=== PATIENT | female | born 1945 | race African-American/Black ===

== ENCOUNTER 2017-10-29 10:48 | Inpatient (IN) | payer MEDICARE ==
[2017-10-29 11:26] LABS: #Basophils 0.1 thou/uL (0.0-0.2); #Eosinphils 0.1 thou/uL (0.0-0.7); #Lymphocytes 2.2 thou/uL (1.20-3.40); #Monocytes 0.6 thou/uL (0.11-0.59); #Neutrophils 8.7 thou/uL (1.40-6.50); %Basophils 0.4 % (0.0-1.0); %Eosinophils 0.8 % (0.0-10.0); %Lymphocytes 19.1 % (21.0-51.0); %Monocytes 5.2 % (0.0-10.0); %Neutrophils 74.5 % (42.0-75.0); Hemoglobin 12.5 g/dL (12.0-16.0); Mean Corpuscular HGB CONC 31.9 g/dL (32.0-36.0); Mean Corpuscular Hemoglobin 25.8 pg (27.0-31.0); Mean Corpuscular Volume 80.9 fl (81.0-99.0); Mean Platelet Volume 7.1 fL (7.4-10.4); Platelet Count 286 thou/uL (130-400); RBC Distribution Width 12.4 % (11.5-14.5); Red Blood Cell (RBC) Count 4.83 mill/uL (4.20-5.40); White Blood Cell (WBC) Count 11.6 thou/uL (4.8-10.8)
--- NOTE | 2017-10-29 11:33 | RAD ---
CHEST 1 VIEW: Date: 10/29/17 HISTORY: Sore throat. Chest pain. Dyspnea. FINDINGS: No comparison. Cardiac silhouette is magnified by projection. Pulmonary vasculature is unremarkable. Mediastinum is midline. At the right suprahilar level, a well circumscribed radiopacity measures up to 3.7 cm and ov erlies the otherwise normal appearing azygos vein. Subtle, poorly defined opacities throughout the left chest would normally be favored as pleural plaqu es, although the abnormality at the right hilum raises concern for additional parenchymal lesions. Cu rved line over the left upper chest is noted. Parenchymal markings extend across it, showing that it is not a pneumothorax and may represent a skin fold. IMPRESSION: Abnormalities of the right suprahilar level and throughout the left hemithorax as detailed above. Con cern is primarily for a right suprahilar mass or adenopathy. Please consider CT chest for better rubén acterization. POS: [facility]
[2017-10-29 11:54] LABS: CKMB 2.7 ng/mL (0-6.6)
[2017-10-29 12:08] LABS: ALT (SGPT) 23 U/L (8-55); AST (SGOT) 29 U/L (5-34); Albumin 4.1 g/dL (3.4-4.8); Alkaline Phosphatase 129 U/L (40-150); Anion Gap 15 mmol/L (10-20); BUN (Urea Nitrogen) 20 mg/dL (9.8-20.1); Bilirubin, Total 0.3 mg/dL (0.2-1.2); CK (CPK) 50 U/L (29-168); Calc. Creatinine Clearance 0 mL/min (70-130); Carbon Dioxide 23 mmol/L (23-31); Chloride 104 mmol/L (98-107); Estimated GFR-MDRD 55; Globulin 4.1 g/dL (2.4-3.5); Glucose 140 mg/dL (83-110); Potassium 4.6 mmol/L (3.5-5.1); Protein, Total 8.2 g/dL (6.0-8.3); Sodium 137 mmol/L (136-145)
[2017-10-29 12:18] LABS: Troponin I 0.014 ng/mL (< 0.028)
[2017-10-29 12:32] LABS: MONO NEGATIVE CONTROL ZONE White (Negative) (White); MONO POSITIVE CONTROL Pink Line (Positive) (PINK/RED); Mononucleosis NEGATIVE (NEGATIVE)
[2017-10-29 12:44] LABS: Bilirubin Negative (Negative); Blood, Urine Moderate (Negative); Clarity CLEAR (Clear); Glucose, Urine (Dipstick) Negative (Negative); Leukocyte Negative (Negative); Nitrite Negative (Negative); Protein, Urine (Dipstick) 100 mg/dL (Neg-Trace); Specific Gravity, Urine 1.005 (1.002-1.036); Urobilinogen 0.2 mg/dL (0.2-1.0); pH, Urine 7.5 (5.0-9.0)
[2017-10-29] MEDS ORDERED: Labetalol HCl 100 MG/20 ML VIAL ONE ×2 (12:45→14:32)
[2017-10-29 12:47] LABS: Bacteria/HPF None Seen HPF (None Seen); Hyaline Casts/LPF 0-3 HYALINE CAST LPF (0-3 Hyaline); Squamous Epithelial None Seen HPF (0-3); WBC/HPF None Seen HPF (0-3)
[2017-10-29] MEDS ORDERED: Hydrocortisone Sod Succ/PF 100 mg/2 ml Vial IVP SCH (13:00)
[2017-10-29] MEDS ORDERED: Propranolol 60 MG TAB PO SCH (13:00)
--- NOTE | 2017-10-29 14:24 | PDOC.FPRHP ---
- History of Present Illness Chief Complaint: Sore throat History of Present Illness: 72 yo F h/hx of HTN here with CC of sore throat for the past few days. She noted this morning that in addition to sore throat she felt light headed and nauseous. In the ED she was noted to have a large goiter, hypertensive (252/119) , and tachycardic (120). She has been seen in the past for the goiter, however has had poor follow up for treatment. She denies ever being told in the past that she was actually hyperthyroid and does not remember being told that it needed treatment. Pt states that she has been diagnosed with HTN in the past, however has been off of her meds for over a year and has not been seen by a PCP in at least as long. She states that the last time she took her BP consistently it typically ran in the 180 systolic range. She denies recent fever, diarrhea, double vision, dry eyes, or nervousness/agitation. Per her he has noticed that her goiter has grown significantly over the past year. PCP: [facility] Course: In the ED patient was given labetalol 20 mg, propranolol, 60mg, and hydrocortisone 100 mg - Allergies/Adverse Reactions Allergies Allergy/AdvReac Type Severity Reaction Status Date / Time No Known Drug Allergies Allergy Verified 10/29/17 12:45 - Home Medications Comments: Pt has been off of meds for over 1 year, however was previously on a combo pill that included HCTZ 12.5 mg - History PMHx: HTN Goiter PSHx: Hysterectomy for fibroids FHx: Social: No tobacco, etoh, or recreational drug use - Review of Systems General: reports: weight/appetite/sleep changes (30 lb weight loss over a year without trying. Has not put on weight even when actively eating more). denies: fever/chills Eyes: denies: vision changes ENT: reports: other (Sore throat). denies: rhinorrhea Respiratory: denies: cough, congestion, shortness of breath, exercise intolerance Cardiovascular: denies: chest pain, palpitation Gastrointestinal: reports: nausea, vomiting. denies: diarrhea, constipation, abdominal pain Genitourinary: denies: incontinence, dysuria, polyuria Skin: denies: rashes, lesions Musculoskeletal: denies: pain, tenderness, stiffness, swelling Neurological: reports: other (light headedness). denies: numbness, syncope, seizure, weakness Psychological: denies: anxiety, depression - Vital signs BP: 252/119 HR: 114 RR: 20 Tmax: 98.5 Pox: 96% on RA Wt: 68 kg - Physical Exam Constitutional: NAD, awake, alert and oriented, well developed HEENT: normocephalic and atraumatic, PERRLA, EOMI, conjunctiva clear, no scleral icterus Neck: supple, FROM, trachea midline -Neck: Large goiter, L more than R. Non tender Chest: no-tender to palpation Heart: RRR, normal S1/S2 -Heart: Systolic murmur, non radiating. Loudest over mitral valve Lungs: CTAB, no respiratory distress, good air movement Abdomen: soft, non-tender, bowel sounds present Musculoskeletal: normal structure, normal tone Neurological: no focal deficit, CN II-XII intact, normal sensation, DTRs 2+ Skin: no rash/lesions, good turgor Heme/Lymphatic: no unusual bruising or bleeding Psychiatric: normal mood and affect -Psychiatric: akathesia FMR H&P: Results - Labs Result Diagrams: 10/29/17 11:16 10/29/17 11:16 Lab results: WBC 11.6 thou/uL (4.8-10.8) H 10/29/17 11:16 Hgb 12.5 g/dL (12.0-16.0) 10/29/17 11:16 Hct 39.1 % (36.0-47.0) 10/29/17 11:16 MCV 80.9 fl (81.0-99.0) L 10/29/17 11:16 Plt Count 286 thou/uL (130-400) 10/29/17 11:16 Neutrophils % 74.5 % (42.0-75.0) 10/29/17 11:16 Sodium 137 mmol/L (136-145) 10/29/17 11:16 Potassium 4.6 mmol/L (3.5-5.1) 10/29/17 11:16 Chloride 104 mmol/L (98-107) 10/29/17 11:16 Carbon Dioxide 23 mmol/L (23-31) 10/29/17 11:16 BUN 20 mg/dL (9.8-20.1) 10/29/17 11:16 Creatinine 1.16 mg/dL (0.6-1.1) H 10/29/17 11:16 Glucose 140 mg/dL (83-110) H 10/29/17 11:16 Lactic Acid 1.7 mmol/L (0.5-2.2) 10/29/17 11:39 Calcium 10.0 mg/dL (7.8-10.44) 10/29/17 11:16 Total Bilirubin 0.3 mg/dL (0.2-1.2) 10/29/17 11:16 AST 29 U/L (5-34) 10/29/17 11:16 ALT 23 U/L (8-55) 10/29/17 11:16 Alkaline Phosphatase 129 U/L (40-150) 10/29/17 11:16 Creatine Kinase 50 U/L (29-168) 10/29/17 11:16 CK-MB (CK-2) 2.7 ng/mL (0-6.6) 10/29/17 11:16 Serum Total Protein 8.2 g/dL (6.0-8.3) 10/29/17 11:16 Albumin 4.1 g/dL (3.4-4.8) 10/29/17 11:16 Urine Ketones Negative mg/dL (Negative) 10/29/17 12:23 Urine Blood Moderate (Negative) H 10/29/17 12:23 Urine Nitrite Negative (Negative) 10/29/17 12:23 Ur Leukocyte Esterase Negative (Negative) 10/29/17 12:23 Urine RBC 11-20 HPF (0-3) H 10/29/17 12:23 Urine WBC None Seen HPF (0-3) 10/29/17 12:23 Ur Squamous Epith Cells None Seen HPF (0-3) 10/29/17 12:23 Urine Bacteria None Seen HPF (None Seen) 10/29/17 12:23 Laboratory Tests 10/29/17 10/29/17 11:11 11:11 Thyroxine (T4) 17.6 H TSH 3rd Generation Less than 0.0025 L - EKG Interpretation EKG: Sinus tach, no ST changes, possible LVH - Radiology Interpretation Chest x-ray Status: report reviewed by me (R suprahilar and L hemithorax concerning for R suprahilar mass vs adenopathy. 3.7 cm, well circumscribed.) FMR H&P: A/P - Problem List (1) Thyrotoxicosis Current Visit: Yes Status: Acute Priority: High Code(s): E05.90 - THYROTOXICOSIS, UNSP WITHOUT THYROTOXIC CRISIS OR STORM Qualifiers: Thyrotoxicosis type: unspecified thyrotoxicosis type Thyrotoxic crisis or storm presence: without thyrotoxic crisis or storm Qualified Code(s): E05.90 - Thyrotoxicosis, unspecified without thyrotoxic crisis or storm (2) Hypertensive urgency Current Visit: Yes Status: Acute Priority: High Code(s): I16.0 - HYPERTENSIVE URGENCY (3) Tachycardia Current Visit: Yes Status: Acute Priority: High Code(s): R00.0 - TACHYCARDIA, UNSPECIFIED (4) Hyperthyroidism Current Visit: Yes Status: Acute Priority: Medium Code(s): E05.90 - THYROTOXICOSIS, UNSP WITHOUT THYROTOXIC CRISIS OR STORM (5) Hypertension Current Visit: Yes Status: Chronic Priority: Medium Code(s): I10 - ESSENTIAL (PRIMARY) HYPERTENSION Qualifiers: Hypertension type: essential hypertension Qualified Code(s): I10 - Essential (primary) hypertension (6) Goiter Current Visit: Yes Status: Acute Priority: Medium Code(s): E04.9 - NONTOXIC GOITER, UNSPECIFIED (7) Mediastinal mass Current Visit: Yes Status: Acute Priority: Medium - Plan Thyrotoxicosis - Score for diagnostic criteria is 25 with 45 being thyroid storm. There is concern for impending storm. - Control BP with beta blockers. Goal 180/110 - Methimazole qDay to control thyroid release - monitor on IMCU - consider ENT consult and further imaging Hypertensive urgency - BP goal with beta blockers. 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 - ENT consult as above - methmizole daily HTN - Likely chronic combined with hyperthyroid - will start outpt meds Goiter - very large goiter, likely needs debulking - ENT consult as above - US pending Mediastinal Mass - CT chest when more stable Tachycardia - secondary to thyrotoxicosis, beta blockers as above PPx - SCD Code Full Diet heart healthy Dispo: pt is currently stable from a circulatory perspective. Will work to stabilize thyroid hormone, then consider further work up for chronic thyroid and mass pathology FMR H&P: Upper Level - Plan Date/Time: 10/29/17 1406 I, [], have evaluated this patient and agree with findings/plan as outlined by data analysis intern resident. Pertinent changes/additions are listed here.
[2017-10-29] MEDS ORDERED: Methimazole 10 MG TAB PO SCH ×2 (14:45→18:00)
--- NOTE | 2017-10-29 16:46 | PDOC.EVN ---
Attending Addendum - Attending Addendum Date/Time: 10/29/17 0390 I personally evaluated the patient and discussed the management with Dr. Rader /Gabriella. I agree with the History, Examination, Assessment and Plan documented in their H &P with any addition or exceptions noted below. Patient with history of enlarged thyroid gland but denies any history of hyperthyroidism presenting here today with weakness and feelings of off balance that started overnight. She otherwise denies headache, chest pain, shortness of breath, leg swelling. She does endorse some difficulty swallowing associated with large goiter that has been progressive, and had some palpitations this morning. Her exam is pertinent for highly elevated blood pressures on arrival that have now improved, tachycardia that is improved, a large goiter on neck exam, and no lower extremity edema. Her imaging is positive for a possible lung mass. Labs show highly suppressed TSH, elevated T4. No other major lab abnormalities noted at this time. She will be admitted for uncontrolled hyperthyroidism and HTN urgency. She does not have evidence of cardiovascular instability, sympathetic instability, altered mentation that would suggest thyrotoxicosis or thyroid storm. We will modulate blood pressures slowly over the next 24 hours as she is asymptomatic, and begin assisted control. Begin methimazole for hyperthyroidism, as well as Propranolol. Labs to evaluate etiology of her elevated thyroid function, and thyroid ultrasound. We will obtain CT chest to further characterize lung mass. Admit to telemetry, and trend trops.
[2017-10-29] MEDS ORDERED: Labetalol HCl 100 MG/20 ML VIAL SLOW IVP PRN ×2 (16:53)
[2017-10-29 18:13] LABS: Creatinine, Urine 20.56 mg/dL (47-110)
[2017-10-29] MEDS: Propranolol 10 MG TAB PO SCH (18:19)
[2017-10-29] MEDS: Sodium Chloride 0.9% 1,000 ML IV SCH (18:19)
[2017-10-29 18:53] LABS: Troponin I 0.066 ng/mL (< 0.028)
--- NOTE | 2017-10-29 19:11 | ULT ---
THYROID SONOGRAM 10/29/17 HISTORY: Hyperthyroidism. FINDINGS: Right thyroid lobe measures up to 10.4 cm length and the left 11.0 cm. Isthmus is 0.5 cm in thickness . Very heterogeneous echotexture of the thyroid gland is apparent without dominant lesion evident. IMPRESSION: Severe enlargement of the thyroid gland, favoring severe Graves' thyroiditis enlargement over multino dular goiter. POS: [facility]
[2017-10-29] MEDS ORDERED: Famotidine/PF 20 mg/2ml Vial SLOW IVP SCH (21:00)
[2017-10-29] MEDS ORDERED: Famotidine 20 MG TAB PO SCH (21:30)
[2017-10-30] MEDS: Propranolol 10 MG TAB PO SCH ×2 (00:12→05:19)
[2017-10-30] MEDS: Sodium Chloride 0.9% 1,000 ML IV SCH (03:43)
[2017-10-30 05:30] LABS: #Eosinphils 0.1 thou/uL (0.0-0.7); #Lymphocytes 3.2 thou/uL (1.20-3.40); #Monocytes 1.1 thou/uL (0.11-0.59); #Neutrophils 5.6 thou/uL (1.40-6.50); %Basophils 0.3 % (0.0-1.0); %Eosinophils 0.9 % (0.0-10.0); %Lymphocytes 32.2 % (21.0-51.0); %Monocytes 10.6 % (0.0-10.0); %Neutrophils 56.1 % (42.0-75.0); Hemoglobin 9.4 g/dL (12.0-16.0); Mean Corpuscular HGB CONC 32.6 g/dL (32.0-36.0); Mean Corpuscular Volume 79.7 fl (81.0-99.0); Platelet Count 264 thou/uL (130-400); RBC Distribution Width 12.3 % (11.5-14.5); Red Blood Cell (RBC) Count 3.63 mill/uL (4.20-5.40)
[2017-10-30 05:43] LABS: Anion Gap 10 mmol/L (10-20); BUN (Urea Nitrogen) 22 mg/dL (9.8-20.1); Calc. Creatinine Clearance 52 mL/min (70-130); Calcium 8.9 mg/dL (7.8-10.44); Carbon Dioxide 25 mmol/L (23-31); Cardiac Risk 2.9 (Less than 4.5); Chloride 109 mmol/L (98-107); Cholesterol 146 mg/dl (< 200 Desired); Estimated GFR-MDRD 70; Glucose 117 mg/dL (83-110); HDL Cholesterol 50 mg/dL (>60 Neg Risk); LDL Cholesterol, Calculated 85 mg/dL; Potassium 3.6 mmol/L (3.5-5.1); Sodium 140 mmol/L (136-145); Triglycerides 56 mg/dL (Less than 150)
[2017-10-30 06:38] LABS: Troponin I 0.029 ng/mL (< 0.028)
[2017-10-30] MEDS: Famotidine 20 MG TAB PO SCH ×2 (07:48→20:15)
[2017-10-30] MEDS: Amlodipine 5 MG TAB PO SCH (07:48)
[2017-10-30] MEDS: Methimazole 10 MG TAB PO SCH (07:49)
[2017-10-30] MEDS: Ondansetron ODT 4 MG TAB PO PRN (11:03)
[2017-10-30] MEDS ORDERED: Metoprolol Tartrate 25 MG TAB PO SCH ×2 (11:45→21:00)
--- NOTE | 2017-10-30 11:57 | PDOC.FM ---
- Subjective Subjective: No acute events overnight. Pts HR remained around mid 90s throughout the night and her BP had dropped to approx 160s systolic, but subsequently increased to 235. She remains asymptomatic, denies headache, changes in vision, fever, chills , night sweats, cp, sob, nvdc. Does report some throat pain. Denies dysphagia and odynophagia. - Objective Vital Signs & Weight: Vital Signs (12 hours) Temp Pulse Resp BP BP Pulse Ox 10/30/17 09:24 87 179/81 H 10/30/17 07:48 88 235/107 H 10/30/17 07:07 98.3 F 87 18 235/107 H 100 10/30/17 04:00 98.8 F 86 20 160/72 H 98 10/30/17 00:00 98.9 F 92 20 155/70 H 99 Weight Weight 63.185 kg I&O: 10/29/17 10/30/17 10/31/17 06:59 06:59 06:59 Intake Total 1683 Output Total 425 Balance 1258 Result Diagrams: 10/30/17 05:05 10/30/17 05:05 <Michael London - Last Filed: 10/30/17 12:21> - Objective Vital Signs & Weight: Vital Signs (12 hours) Temp Pulse Resp BP BP Pulse Ox 10/31/17 10:32 163/71 H 10/31/17 09:39 201/88 H 10/31/17 07:50 98.5 F 96 18 10/31/17 07:45 98.5 F 96 18 200/91 H 100 10/31/17 04:00 98.2 F 94 12 151/63 H 98 10/31/17 01:25 91 143/63 H 10/31/17 00:04 89 198/88 H 10/31/17 00:00 98.7 F 87 18 181/75 H 100 Weight Admit Weight 139 lb 4.8 oz Weight 136 lb 11.2 oz I&O: 10/30/17 10/31/17 11/01/17 06:59 06:59 06:59 Intake Total 1683 1922 Output Total 425 Balance 1258 1922 Result Diagrams: 10/31/17 04:42 10/31/17 04:42 <Philipp Grewal - Last Filed: 10/31/17 11:40> Phys Exam - Physical Examination Constitutional: NAD HEENT: PERRLA Neck: full ROM Severely enlarged thyroid Respiratory: no wheezing, no rales, no rhonchi, clear to auscultation bilateral Cardiovascular: RRR, no significant murmur, no rub Gastrointestinal: soft, non-tender, no distention, positive bowel sounds Musculoskeletal: no edema, pulses present Neurological: non-focal, moves all 4 limbs Psychiatric: normal affect Skin: no rash Deviation from normal: dermatofibroma left shoulder/paraspinal area <Michael London - Last Filed: 10/30/17 12:21> Dx/Plan (1) Hyperthyroidism Code(s): E05.90 - THYROTOXICOSIS, UNSP WITHOUT THYROTOXIC CRISIS OR STORM Status: Acute (2) Hypertensive urgency Code(s): I16.0 - HYPERTENSIVE URGENCY Status: Acute (3) Mediastinal mass Status: Acute (4) Hypertension Code(s): I10 - ESSENTIAL (PRIMARY) HYPERTENSION Status: Chronic QualifierTitle: Hypertension type: essential hypertension Qualified Code( s): I10 - Essential (primary) hypertension (5) Hyperlipidemia Code(s): E78.5 - HYPERLIPIDEMIA, UNSPECIFIED Status: Acute (6) Graves disease Code(s): E05.00 - THYROTOXICOSIS W DIFFUSE GOITER W/O THYROTOXIC CRISIS Status : Acute - Plan Plan: 1)Hyperthyroidism vs Thyrotoxicosis - BP and HR have trended down, will switch propranolol to metoprolol BID and add amlodipine -titrate metoprolol accordingly as pressures and hr tolerate -US showed no definitive mass; however CT ordered and shows calcification of left thyroid lobe concerning for a mass and additionally rt suprahilar mass with calcification concerning for malignancy with metastasis vs lymph node enlargement. After speaking with ENT and Oncology their recommendations include controlling HR and BP acutely and additionally holding off on a definitive dx of thyroid ca as there is potential for a false positive in light of active Grave's disease -symptom control for now with ccb and bb, monitor pressures 2)Hypertensive urgency - 2/2 above, continue beta blockers and amlodapine 3)Hyperthyroid - 2/2 Graves disease - methmizole daily -cont amlodapine and BB 4)HTN - Likely chronic combined with hyperthyroid - bb and ccb, monitor pressures 5)Graves Dz vs toxic goiter vs mass -enlarged thyroid 2/2 above. See #1 -symptom control for now and once BP and HR stable will need further evaluation 6)Mediastinal Mass/Suprahilar - CT chest showed concern for mass of LL of thyroid concerning for malignancy; unable to determine if truly malignancy vs severe Grave's. Will control Grave's disease for now and the pt will likely need extensive OP workup. 7)Grave's Disease: See above 8) HLD: Mod intensity statin <Michael London - Last Filed: 10/30/17 12:21> Attending Addendum - Attending Addendum Date/Time: 10/31/17 1138 I personally evaluated the patient and discussed the management with . I agree with the History, Examination, Assessment and Plan documented above with any addition or exceptions noted below. Treat Thyrotoxicosis, ent consult if needed, beta kelli. Follow CT scan report. <Philipp Grewal - Last Filed: 10/31/17 11:40>
--- NOTE | 2017-10-30 13:31 | CT ---
CT CHEST WITH IV CONTRAST: Date: 10/30/17 HISTORY: Abnormal chest radiograph. Thyroid mass. Mediastinal mass. FINDINGS: No parenchymal lung mass, infiltrate, pleural fluid, or pneumothorax are visible. The superiormost im ages show a very large heterogeneous mass centered at the left thyroid lobe measuring up to 9.7 cm ob lique diameter on the axial images. Several foci of coarse calcifications are present. Centered just to the right of midline of the upper anterior mediastinum, anterior to the ascending ao rtic arch, is a lobular predominantly low density soft tissue density mass measuring up to 6.3 cm wid th x 2.4 cm depth. It also contains foci of dystrophic calcification. The inferiormost images show an oval low density lesion of the left adrenal gland measuring up to 2.7 cm. Hounsfield unit measurements are greater than what an adenoma should be on noncontrast study. IMPRESSION: 1. Large, aggressive appearing left thyroid lobe mass with substernal extension. 2. Anterior thyroid mass, favored to be related to metastatic adenopathy or other neoplastic extensi on of the thyroid abnormality. 3. Indeterminate 2.7 cm left adrenal gland mass. This could represent a metastatic focus. For furthe r evaluation, noncontrast CT of the adrenal glands could be used for evaluation of possible adenoma. Findings called to Dr. London at 1203 hours. CODE CR. POS: [facility]
[2017-10-30 13:40] VITALS: BMI 23.1
[2017-10-30] MEDS ORDERED: ISOVUE-370 76%-LOCM 1 ML ONE (14:36)
[2017-10-30] MEDS: hydrALAZINE 20 MG/ML VIAL SLOW IVP PRN (14:40)
[2017-10-30] MEDS ORDERED: Atorvastatin Calcium 20 MG TAB PO SCH (21:00)
[2017-10-31] MEDS: hydrALAZINE 20 MG/ML VIAL SLOW IVP PRN ×2 (00:04→09:39)
[2017-10-31 05:05] LABS: #Eosinphils 0.1 thou/uL (0.0-0.7); #Lymphocytes 2.3 thou/uL (1.20-3.40); #Monocytes 0.9 thou/uL (0.11-0.59); #Neutrophils 4.4 thou/uL (1.40-6.50); %Basophils 0.1 % (0.0-1.0); %Eosinophils 1.5 % (0.0-10.0); %Lymphocytes 30.4 % (21.0-51.0); %Monocytes 11.1 % (0.0-10.0); %Neutrophils 56.9 % (42.0-75.0); Hemoglobin 9.6 g/dL (12.0-16.0); Mean Corpuscular HGB CONC 32.7 g/dL (32.0-36.0); Mean Corpuscular Volume 79.5 fl (81.0-99.0); Mean Platelet Volume 6.7 fL (7.4-10.4); Platelet Count 261 thou/uL (130-400); RBC Distribution Width 12.3 % (11.5-14.5); Red Blood Cell (RBC) Count 3.69 mill/uL (4.20-5.40); White Blood Cell (WBC) Count 7.7 thou/uL (4.8-10.8)
[2017-10-31 05:16] LABS: Anion Gap 9 mmol/L (10-20); BUN (Urea Nitrogen) 19 mg/dL (9.8-20.1); Calc. Creatinine Clearance 44 mL/min (70-130); Carbon Dioxide 25 mmol/L (23-31); Chloride 109 mmol/L (98-107); Estimated GFR-MDRD 58; Glucose 118 mg/dL (83-110); Potassium 3.6 mmol/L (3.5-5.1); Sodium 139 mmol/L (136-145)
[2017-10-31] MEDS: Sodium Chloride 0.9% 1,000 ML IV SCH (07:22)
--- NOTE | 2017-10-31 07:52 | PDOC.FM ---
- Subjective Subjective: No acute events overnight. Denies cp, palpitations, sob, nvdc. Denies sore throat. Discussed importance of continued medication compliance once ready for dc and importance of close OP f/u. Pt agreeable. - Objective Vital Signs & Weight: Vital Signs (12 hours) Temp Pulse Resp BP BP Pulse Ox 10/31/17 04:00 98.2 F 94 12 151/63 H 98 10/31/17 01:25 91 143/63 H 10/31/17 00:04 89 198/88 H 10/31/17 00:00 98.7 F 87 18 181/75 H 100 10/30/17 20:15 98.6 F 88 22 H 99 Weight Admit Weight 63.185 kg Weight 62.006 kg I&O: 10/30/17 10/31/17 11/01/17 06:59 06:59 06:59 Intake Total 168 1922 Output Total 425 Balance 1258 1922 Result Diagrams: 10/31/17 04:42 10/31/17 04:42 <Michael London - Last Filed: 10/31/17 07:51> - Objective Vital Signs & Weight: Vital Signs (12 hours) Temp Pulse Resp BP BP Pulse Ox 10/31/17 10:32 163/71 H 10/31/17 09:39 201/88 H 10/31/17 07:50 98.5 F 96 18 10/31/17 07:45 98.5 F 96 18 200/91 H 100 10/31/17 04:00 98.2 F 94 12 151/63 H 98 10/31/17 01:25 91 143/63 H 10/31/17 00:04 89 198/88 H 10/31/17 00:00 98.7 F 87 18 181/75 H 100 Weight Admit Weight 139 lb 4.8 oz Weight 136 lb 11.2 oz I&O: 10/30/17 10/31/17 11/01/17 06:59 06:59 06:59 Intake Total 1682 1922 Output Total 425 Balance 1258 1922 Result Diagrams: 10/31/17 04:42 10/31/17 04:42 <Philipp Grewal - Last Filed: 10/31/17 11:37> Phys Exam - Physical Examination Constitutional: NAD HEENT: PERRLA, sclera anicteric Neck: no JVD, full ROM severley enlarged thyroid, NTTP Respiratory: no wheezing, no rales, no rhonchi, clear to auscultation bilateral Cardiovascular: RRR, no significant murmur, no rub Gastrointestinal: soft, non-tender, no distention, positive bowel sounds Musculoskeletal: no edema, pulses present Neurological: non-focal, normal sensation, moves all 4 limbs Skin: no rash, cap refill <2 seconds <Michael London - Last Filed: 10/31/17 07:51> Dx/Plan (1) Hyperthyroidism Code(s): E05.90 - THYROTOXICOSIS, UNSP WITHOUT THYROTOXIC CRISIS OR STORM Status: Acute (2) Hypertensive urgency Code(s): I16.0 - HYPERTENSIVE URGENCY Status: Acute (3) Mediastinal mass Status: Acute (4) Hypertension Code(s): I10 - ESSENTIAL (PRIMARY) HYPERTENSION Status: Chronic QualifierTitle: Hypertension type: essential hypertension Qualified Code( s): I10 - Essential (primary) hypertension (5) Hyperlipidemia Code(s): E78.5 - HYPERLIPIDEMIA, UNSPECIFIED Status: Acute (6) Graves disease Code(s): E05.00 - THYROTOXICOSIS W DIFFUSE GOITER W/O THYROTOXIC CRISIS Status : Acute - Plan Plan: 1)Hyperthyroidism vs Thyrotoxicosis - BP and HR have trended down, will switch propranolol to metoprolol BID and add amlodipine, increase metoprolol to 50 BID and monitor pressures. If continueing to trend down, likely ok for DC today with close OP f/u in clinic -CT showed mass in left lobe. Spoke with oncology, recommended treatment of acute hyperthyroid and re-assessment once resolved. Will ultimately need endocrine and ENT evaluation. But can be referred OP. 2)Hypertensive urgency - 2/2 above, continue beta blockers and amlodipine 3)Hyperthyroid - 2/2 Graves disease - methmizole daily -cont amlodapine and BB, increase metoprolol, monitor pressures and hopefully DC to home today with close OP f/u 4)HTN - Likely chronic combined with hyperthyroid - bb and ccb, monitor pressures. Increase metoprolol. If pressures cont to decrease will be ok for DC. 5)Graves Dz vs toxic goiter vs mass -enlarged thyroid 2/2 above. See #1 -will need further OP evaluation 6)Mediastinal Mass/Suprahilar - CT chest showed concern for mass of LL of thyroid concerning for malignancy; unable to determine if truly malignancy vs severe Grave's. Will control Grave's disease for now and the pt will likely need extensive OP workup. May be extension of thyroid mass; nonetheless, pt requires management of acute hyperthyroidism and BP. 7)Grave's Disease: See above 8) HLD: Mod intensity statin <Michael London - Last Filed: 10/31/17 07:51> Attending Addendum - Attending Addendum Date/Time: 10/31/17 8558 I personally evaluated the patient and discussed the management with Dr. London. I agree with the History, Examination, Assessment and Plan documented above with any addition or exceptions noted below. Continue mathimazole, beta kelli and out patient family medicine and ENT eval. <Philipp Grewal - Last Filed: 10/31/17 11:37>
[2017-10-31] MEDS: Famotidine 20 MG TAB PO SCH (08:45)
[2017-10-31] MEDS: Amlodipine 5 MG TAB PO SCH (08:45)
[2017-10-31] MEDS ORDERED: Metoprolol Tartrate 50 MG TAB PO SCH (09:00)
[2017-10-31] MEDS: Ondansetron ODT 4 MG TAB PO PRN (09:38)
[2017-10-31] MEDS: Methimazole 10 MG TAB PO SCH (10:28)
[2017-10-31 12:27] VITALS: TEMP 98.6
[2017-10-31 13:53] VITALS: BP 177/81
[2017-11-01 12:28] LABS: EliA Thy New Method **** NEW METHOD ****; Thyroglobulin Antibody Less than 12.0 IU/mL (<40 Normal); Thyroid Peroxidase IgG Ab Less than 4.0 IU/mL (<25 Normal)
--- NOTE | 2017-11-02 08:21 | DIS-2 ---
DATE OF ADMISSION: 10/29/2017 DATE OF DISCHARGE: 10/31/2017 REPORT TYPE: Discharge Summary DATE OF SERVICE: 10/31/2017 LOCATION: [place], [place] RESIDENT PHYSICIAN: Michael London D.O. ADMITTING ATTENDING: Tommy Onofre M.D. DISCHARGE ATTENDING: Phliipp Grewal M.D. CONSULTATIONS: None. PROCEDURES: 1. Chest x-ray done on 10/29/2017 showed abnormalities of the right suprahilar level throughout the left hemithorax, which included pleural plaques, although with the abnormality at the right hilum, th ere was concern for additional parenchymal lesions. Additionally, there is concern for a right supra hilar mass or adenopathy. 2. A thyroid ultrasound on 10/29/2017 showed the right lower lobe measures up to 10.4 cm, and left 1 1 cm. The isthmus is 0.5 cm in thickness and there is a very heterogenous echotexture of the thyroid gland without a dominant lesion that is evident. 3. A chest CT done on 10/30/2017 showed a large aggressive appearing left lower lobe mass with subst ernal extension. Anterior thyroid mass favored to be related to metastatic adenopathy or other neopl astic extension of the thyroid abnormality. There is indeterminate 2.7 cm left adrenal gland mass. Photograph could represent a metastatic focus. Further evaluation or noncontrast CT of the genitals could be used for evaluation in the future. PRIMARY DIAGNOSIS: Graves' disease. SECONDARY DIAGNOSES: 1. Thyrotoxicosis versus hyperthyroidism. 2. Hypertension. 3. Tachycardia. 4. Goiter. DISCHARGE MEDICATIONS: 1. Amlodipine 5 mg p.o. daily. 2. Atorvastatin 20 mg p.o. at bedtime. 3. Methimazole 20 mg p.o. daily. 4. Metoprolol 50 mg p.o. b.i.d. DISCONTINUED MEDICATIONS: None. HISTORY OF PRESENT ILLNESS AND HOSPITAL COURSE: This is a 72-year-old female with chief complaint of sore throat, nausea and vomiting. On presentation to the emergency department, the patient's blood pressure was noted to be in the 250 systolic and a very large thyroid mass versus goiter was noted on exam. Patient's TSH on admission was less than 0.0025 and her T4 was 17. She was subsequently marv melissa with propranolol and labetalol for control of tachycardia and her blood pressure. The patient's heart rate on admission was 124, but ranged from 90-120. She noted that the goiter in her neck was a ctually present for approximately 30-40 years when she was evaluated prior to this, but her thyroid t ests at that time were all normal. However, her family on admission noted that the goiter had grown significantly over the last year and she had also noted some significant weight loss in that time. S he denied any heat or cold intolerance. No hair loss or fairly brittle nails. The patient was ultimately admitted to telemetry unit where she was given methimazole 20 mg daily and eventually started on amlodipine and switched from propranolol to metoprolol for beta blockade for h yperthyroidism and Graves' disease. Given chest CT results and after speaking with the Oncology, the re was no concern for malignancy at this time as this was thought to be active Graves' disease which was later confirmed by results. The patient will need a treatment of her Graves' disease prior to fo [facility] imaging being performed. The pertinent labs from this visit include TSH less than 0.0025, T4 of 17.6 and TSH receptor antibody 8.21 within normal range being 0-1.75. Thyroglobulin antibody was within normal limits of thyroid peroxidase. IgG was within normal limits as well. The patient's vit al signs on discharge were 177/81 for her blood pressure, however, the patient was asymptomatic with this blood pressure and she noted a prior diagnosis of hypertension in the past, which she was treate d before. However, she has not been taking her medications, has not followed up with the primary doc tor in quite some time. Before discharge, the patient was instructed to check her blood pressure at home and if she has all levels of over 160s, to increase the metoprolol to 100 mg p.o. b.i.d., Addit ionally, the patient was given instruction to follow up within 3-5 days at [facility] f or continued care for active Graves' disease. DISPOSITION: The patient left the hospital in stable condition. DISCHARGE INSTRUCTIONS: 1. Location: Home. 2. Diet: Heart healthy. 3. Activity: Ad jeovanny. FOLLOWUP: Follow up with primary care provider at [facility] in 3-5 days following dis charge and follow up with ear, nose and throat physician within 2 weeks following discharge.
== END 2017-10-31 16:02 | disposition home or self-care (01) | DRG 643 ==
LOC: ERS 10:48 → EDBD 10:48 → 2NO 16:39
PROVIDERS: ADMIT Student in an Organized Health Care Education/Training Program; ATTEND Student in an Organized Health Care Education/Training Program
DX: E05.00 Thyrotoxicosis with diffuse goiter without thyrotoxic crisis or storm (principal); J98.59 Other diseases of mediastinum, not elsewhere classified; I10 Essential (primary) hypertension; J02.9 Acute pharyngitis, unspecified; I16.0 Hypertensive urgency; R91.8 Other nonspecific abnormal finding of lung field; R00.0 Tachycardia, unspecified; E78.5 Hyperlipidemia, unspecified
CPT/HCPCS: 36415; 71045; 71260; 76536; 80048; 80053; 80061; 81003; 81015; 82550; 82553; 82570; 83605; 84238; 84300; 84436; 84443; 84484; 85025; 86308; 86376; 86800; 87081; 87430; 93005; 94760; 96374; 96375; 96376; J0360; J1720; Q0162

== ENCOUNTER 2019-08-15 08:06 | Outpatient (CLI) | payer MEDICARE ==
--- NOTE | 2019-08-15 09:30 | CT ---
CT OF THE NECK: DATE: 08/15/2019. COMPARISON: None available. HISTORY: Neck mass, history of goiter. TECHNIQUE: Serial axial CT imaging at3 mm from theskull base through the lung apices with IV contrast. Coronal and sagittal reformatted imaging obtained. Findings: This examination is compared to a chest CT performed 10/30/2017. The imaged lung apices are unremarkable. There is an incompletely imaged lobulated hypodense soft tissue mass with internal calcification with in the superior mediastinum abutting the inferior aspect of the brachiocephalic vein as well as the anterior aspect of the ascending aorta and the superior vena cava. This mass measures approximately 7 .1 cm in transverse dimension and 3.2 cm in AP dimension. This lesion is incompletely assessed on this examination and has probably grown slightly when compared to the [address] is advised for full assessment. The thyroid gland is markedly abnormal, demonstrating extensive heterogeneity and diffuse marked enla rgement. The thyroid gland measures at least 12 cm in craniocaudal dimension to the left of midline. The thyroid gland measures at least 11.9 cm in transverse dimension, increased from 10.6 cm on the prior exam. In greatest AP dimension the thyroid gland measures 8.7 cm, increased from 8 cm on the prior exam. 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 The visualized paranasal sinuses and mastoid air cells appear grossly unremarkable. The retroantral fat and the parapharyngeal fat appears clear bilaterally. The parotid glands and subm andibular glands are grossly unremarkable. The superior aspect of the enlarged thyroid gland deviates the trachea to the right of midline at the axial level of the glottis. The hyoid bone, thyro id cartilage, and cricoid cartilage appear grossly unremarkable. Atherosclerotic calcification is noted at the level of the aortic arch, the proximal left subclavian artery, and the proximal aspect of bilateral internal carotid arteries, right greater than left. Osseous structures demonstrate significant degenerative endplate change at the C4-5 level as well as the T4-5, T5-6, and T6-7 levels. This thoracic spine degenerative changes incompletely imaged on this examination and has progressed since the prior study. No lymphadenopathy is apparent within the neck. Impression: 1. The thyroid gland is markedly enlarged, slightly increased in size when compared to the 2018 exam , with associated mass effect as detailed above. 2. There is a nonspecific partially visualized soft tissue mass within the superior mediastinum with internal calcification, which appears to have enlarged since the prior exam slightly. Recommend dedicated CT examination of the chest however for full assessment as this lesion is only partially vi sualized on this exam. CODE T Transcribed Date/Time: 08/15/2019 9:30 AM
[2019-08-15] MEDS ORDERED: Iopamidol-370 76% 500 ML 1 ML ONE (15:13)
== END 2019-08-15 08:07 | disposition home or self-care (01) ==
LOC: BICCT 08:06
PROVIDERS: ATTEND Specialist
DX: R22.1 Localized swelling, mass and lump, neck (principal); E04.9 Nontoxic goiter, unspecified
CPT/HCPCS: 70491; 82565

== ENCOUNTER 2019-10-29 11:40 | Inpatient (IN) | payer MEDICARE, OTHER ==
[2019-10-29 12:02] LABS: Actual Bicarbonate (HCO3a) 20.1 mEq/L (22-28); Analyzer IN Cardio ER; Base Excess (BEa) -2.6 mEq/L (-2.0 to +3.0); CO2 Tension 28.8 mmHg (35.0-45.0); Calcium, Ionized 1.12 mmol/L (1.12-1.30); Carboxyhemoglobin (COHb) 0.5 gm% (0.0-3.0); Hemoglobin (Hb) 12.5 g/dL (12.0-16.0); O2 Tension (PaO2) 47.2 mmHg (> 70.0); Potassium - ABG Lab 3.34 mmol/L (3.70-5.30); Puncture Site LRA; pH, Arterial 7.46 (7.35-7.45)
[2019-10-29 12:07] LABS: Hemoglobin 13.1 g/dL (12.0-16.0); Mean Corpuscular HGB CONC 32.5 g/dL (32.0-36.0); Mean Corpuscular Hemoglobin 27.7 pg (27.0-31.0); Mean Corpuscular Volume 85.4 fL (78.0-98.0); Mean Platelet Volume 5.8 fL (7.4-10.4); Platelet Count 564 thou/uL (130-400); Red Blood Cell (RBC) Count 4.72 mill/uL (4.20-5.40); White Blood Cell (WBC) Count 24.2 thou/uL (4.8-10.8)
--- NOTE | 2019-10-29 12:28 | RAD ---
Chest one view HISTORY: Chest pain. COMPARISON: 10/29/2017. FINDINGS: Cardiac silhouette is magnified and partially obscured by patchy areas of parenchymal infil trate throughout each lung, more pronounced at the lung bases. Mediastinum is midline. Pulmonary vasculature favored to be within normal limits allowing for shallow inspiration. No evidence of pneumothorax. pvc monitor leads overlie the chest. IMPRESSION : Multifocal parenchymal infiltrate, predominantly basilar. No significant pulmonary vascular congestio n. Clinical correlation regarding other signs and symptoms of multifocal viral pneumonitis is required.
[2019-10-29 12:30] LABS: ALT (SGPT) 7 U/L (8-55); AST (SGOT) 16 U/L (5-34); Albumin 3.2 g/dL (3.4-4.8); Alkaline Phosphatase 117 U/L (40-110); Anion Gap 22 mmol/L (10-20); BUN (Urea Nitrogen) 53 mg/dL (9.8-20.1); Bilirubin, Total 0.4 mg/dL (0.2-1.2); CK (CPK) 35 U/L (29-168); Calc. Creatinine Clearance 0 mL/min (70-130); Carbon Dioxide 18 mmol/L (23-31); Chloride 95 mmol/L (98-107); Estimated GFR-MDRD 17; Globulin 5.3 g/dL (2.4-3.5); Glucose 167 mg/dL (83-110); Lipase 6 U/L (8-78); Potassium 3.9 mmol/L (3.5-5.1); Protein, Total 8.5 g/dL (6.0-8.3); Sodium 131 mmol/L (136-145)
[2019-10-29 12:32] LABS: Hypersemented Neutrophil MODERATE; Lymphocytes 3 % (21-51); MDiff Complete? YES; Monocytes 8 % (0-10); Neutrophil 89 % (42-75); Platelet Morphology Comment Appears Increased
[2019-10-29 13:22] LABS: Bilirubin Negative (Negative); Blood, Urine Trace (Negative); Clarity Turbid (Clear); Glucose, Urine (Dipstick) 70 mg/dL (Negative); Leukocyte 75 Leu/uL (Negative); Nitrite Negative (Negative); Protein, Urine (Dipstick) 50 mg/dL (Neg-Trace); Renal Epithelial 0-3 HPF (None Seen); Transitional Epithelial 0-3 HPF (None Seen); Urobilinogen Normal mg/dL (Less than 2)
[2019-10-29] MEDS ORDERED: Vancomycin 1 GM/200 ML BAG ONE (13:29)
[2019-10-29 13:30] LABS: Bacteria/HPF 2+ HPF (None Seen)
[2019-10-29] MEDS ORDERED: Azithromycin 500 MG VIAL ONE (13:48)
--- NOTE | 2019-10-29 15:27 | PDOC.FPRHP ---
- History of Present Illness Chief Complaint: Weakness, abdominal pain, cough History of Present Illness: 74 yo female presents to ED due to increased work of breathing from home. Of note, on admission to ED her O2 sat on room air was 60%. She was brought to ED by her daughter. Patient's daughter reports she has had an illness over the last week that has increased her rate of breathing and caused increased fatigue. The patient reports having a cough for approximately 1-3 months. She does note that she has been "breathing fast" for the past 2 days. She notes that she has felt warm and had chills, but has not measured any fevers. Her family reports adhering to [facility] order and has not had any ill contacts. Patient reports she has felt better since the O2 has been placed on her. No other complaints. ED Course: 1L NS bolus 1 g Vancomycin 500 mg Azithromycin - Allergies/Adverse Reactions Allergies Allergy/AdvReac Type Severity Reaction Status Date / Time No Known Drug Allergies Allergy Verified 10/29/17 12:45 - Home Medications Medication Instructions Recorded Confirmed Type Amlodipine [Norvasc] 5 mg PO DAILY #30 tab 10/31/17 Rx Atorvastatin Calcium [Lipitor] 20 mg PO HS #30 tab 10/31/17 Rx Methimazole [Tapazole] 20 mg PO DAILY #60 tab 10/31/17 Rx Metoprolol Tartrate [Lopressor] 50 mg PO BID #60 tab 10/31/17 Rx - History PMHx: HTN, HLD, DM2, Hyperthyroidism PSHx: Hysterectomy FHx: Non-contributory Social: Denies alcohol, tobacco, or illicit drugs. No ill contacts. Lives at home. - Review of Systems General: reports: fever/chills, weight/appetite/sleep changes, fatigue Eyes: denies: eye pain, vision changes ENT: denies: nasal congestion, rhinorrhea Respiratory: reports: cough, congestion. denies: shortness of breath Cardiovascular: denies: chest pain, palpitation Gastrointestinal: denies: nausea, vomiting, diarrhea, constipation Genitourinary: denies: incontinence, dysuria Skin: denies: rashes, lesions, jaundice Musculoskeletal: denies: pain, tenderness, stiffness, swelling Neurological: reports: weakness. denies: numbness, syncope, seizure Psychological: denies: anxiety, depression - Vital signs BP: 155/79 HR: 122 RR: 32 Tmax: 98.2 Pox: 93% on Ventimask 15L Wt: 64 kg - Physical Exam Constitutional: awake, alert and oriented -Constitutional: O2 Facemask in place HEENT: normocephalic and atraumatic, PERRLA, grossly normal hearing -HEENT: Dry mucous membranes. Goiter present. Neck: trachea midline Chest: no-tender to palpation, no lesions Heart: normal S1/S2, no murmurs/rubs/gallops, pulses present, no edema -Heart: Tachycardic rate, regular rhythm -Lungs: Tachypnea present, no retractions. Diminished breath sounds bilaterally. Abdomen: soft, non-tender, bowel sounds present, no masses/distention Musculoskeletal: normal tone, ROM grossly normal Neurological: no focal deficit, CN II-XII intact Skin: no rash/lesions, capillary refill <2 seconds Heme/Lymphatic: no unusual bruising or bleeding, no purpura Psychiatric: normal mood and affect, good judgment and insight, intact recent and remote memory FMR H&P: Results - Labs Result Diagrams: 10/29/19 11:57 10/29/19 11:57 Lab results: WBC 24.2 thou/uL (4.8-10.8) H 10/29/19 11:57 Hgb 13.1 g/dL (12.0-16.0) 10/29/19 11:57 Hct 40.4 % (36.0-47.0) 10/29/19 11:57 MCV 85.4 fL (78.0-98.0) 10/29/19 11:57 Plt Count 564 thou/uL (130-400) H 10/29/19 11:57 ABG pH 7.46 (7.35-7.45) H 10/29/19 11:54 ABG pCO2 28.8 mmHg (35.0-45.0) L 10/29/19 11:54 ABG pO2 47.2 mmHg (> 70.0) L* 10/29/19 11:54 Sodium 131 mmol/L (136-145) L 10/29/19 11:57 Potassium 3.9 mmol/L (3.5-5.1) 10/29/19 11:57 Chloride 95 mmol/L (98-107) L 10/29/19 11:57 Carbon Dioxide 18 mmol/L (23-31) L 10/29/19 11:57 BUN 53 mg/dL (9.8-20.1) H 10/29/19 11:57 Creatinine 3.16 mg/dL (0.6-1.1) H 10/29/19 11:57 Glucose 167 mg/dL (83-110) H 10/29/19 11:57 Lactic Acid 2.5 mmol/L (0.5-2.2) H 10/29/19 11:57 Calcium 9.0 mg/dL (7.8-10.44) 10/29/19 11:57 Total Bilirubin 0.4 mg/dL (0.2-1.2) 10/29/19 11:57 AST 16 U/L (5-34) 10/29/19 11:57 ALT 7 U/L (8-55) L 10/29/19 11:57 Alkaline Phosphatase 117 U/L (40-110) H 10/29/19 11:57 Creatine Kinase 35 U/L (29-168) 10/29/19 11:57 B-Natriuretic Peptide 21.9 pg/mL (0-100) 10/29/19 11:57 Serum Total Protein 8.5 g/dL (6.0-8.3) H 10/29/19 11:57 Albumin 3.2 g/dL (3.4-4.8) L 10/29/19 11:57 Lipase 6 U/L (8-78) L 10/29/19 11:57 Urine Ketones Trace mg/dL (Negative) A 10/29/19 12:56 Urine Blood Trace (Negative) A 10/29/19 12:56 Urine Nitrite Negative (Negative) 10/29/19 12:56 Ur Leukocyte Esterase 75 Amarilys/uL (Negative) A 10/29/19 12:56 Urine RBC 4-6 HPF (0-3) A 10/29/19 12:56 Urine WBC 7-10 HPF (0-3) A 10/29/19 12:56 Ur Squamous Epith Cells 11-20 HPF (0-3) A 10/29/19 12:56 Urine Bacteria 2+ HPF (None Seen) A 10/29/19 12:56 - EKG Interpretation EK lead EKG shows, sinus tachycardia, Rate (beats per minute): 114, Interpretation:, Conduction normal, ST segments normal, T waves normal, Clinical impression:, Sinus tachycardia - Radiology Interpretation Chest x-ray Status: image reviewed by me (Bilateral multifocal infiltrates) FMR H&P: A/P - Problem List (1) Acute respiratory failure with hypoxia Current Visit: Yes Status: Acute Code(s): J96.01 - ACUTE RESPIRATORY FAILURE WITH HYPOXIA (2) Goiter Current Visit: No Status: Acute Priority: Medium Code(s): E04.9 - NONTOXIC GOITER, UNSPECIFIED (3) Hyperthyroidism Current Visit: No Status: Acute Priority: Medium Code(s): E05.90 - THYROTOXICOSIS, UNSP WITHOUT THYROTOXIC CRISIS OR STORM (4) Hypertension Current Visit: No Status: Chronic Priority: Medium Code(s): I10 - ESSENTIAL (PRIMARY) HYPERTENSION Qualifiers: Hypertension type: essential hypertension Qualified Code(s): I10 - Essential (primary) hypertension (5) SIDRA (acute kidney injury) Current Visit: Yes Status: Acute Code(s): N17.9 - ACUTE KIDNEY FAILURE, UNSPECIFIED - Plan 1. Acute Hypoxic Respiratory Failure - Rule out COVID due to tachypnea and XR findings - Currently on Venti-mask - Supplemental O2 as needed - Repeat ABG in AM - Repeat CXR in AM - Will order Pro-nimesh and RVP 2. SIDRA - IVF - Recheck BMP 3. Hyperthyroidism with goiter - Will order TSH 4. HTN - Continue home medications - Monitor PCP: [facility] CODE STATUS: FULL CODE Disposition: Stable, will admit to CCU for further evaluation and treatment. Addendum - Attending - Attending Attestation Date/Time: 10/29/19 [id number] I personally evaluated the patient and discussed the management with Dr. Meza. I agree with the History, Examination, Assessment and Plan documented above with any addition or exceptions noted below. Patient with hx of HTN and Hyperthyroidism here with cough and shortness of breath. She is poor historian but family overall reports worsening of status over the last week or so. On arrival, she was hypoxic and started on Venturi mask. ABG showed PaO2 level in 40s and sats in 80s on mask. CXR shows bilateral infiltrates, worse in bases, and some prominent foci concerning for viral process, potentially COVID. She is also noted to have leukocytosis with lymphopenia, SIDRA. Due to respiratory distress and hypoxemia, patient will be admitted to CCU. Continue CAP treatment, cultures obtained. Conservative fluid repletion. COVID status pending, due to risk factors and O2 requirements will start Plaquenil. Pulm consult. Discussed at length the patient's willingness to proceed to intubation and she said as of right now she is "as a last resort".
[2019-10-29 15:34] LABS: Lactic Acid 1.3 mmol/L (0.5-2.2)
[2019-10-29] MEDS ORDERED: CCU Electrolyte Replacement 1 EACH IVPB ONE (16:48)
[2019-10-29] MEDS ORDERED: Ondansetron ODT 4 MG TAB PO PRN (16:48)
[2019-10-29] MEDS ORDERED: Acetaminophen 325 MG TAB PO PRN (16:48)
[2019-10-29] MEDS ORDERED: Potassium Phosphate 12 MMOL in Sodium Chloride 0.9% 250 ML 250 ML IV PRN (16:56)
[2019-10-29] MEDS ORDERED: Potassium Chloride 20 MEQ TAB PO PRN (16:56)
[2019-10-29] MEDS ORDERED: Potassium Chloride 40 MEQ in Premix Bag 1 BAG IVPB PRN (16:56)
[2019-10-29] MEDS ORDERED: Magnesium Oxide 400 MG TAB PO PRN ×2 (16:56)
[2019-10-29] MEDS ORDERED: Potassium Phosphate 15 MMOL in Sodium Chloride 0.9% 250 ML 250 ML IV PRN (16:56)
[2019-10-29] MEDS ORDERED: Potassium Chloride 40 MEQ in Sodium Chloride 0.9% 250 ML 250 ML IVPB PRN (16:56)
[2019-10-29] MEDS ORDERED: PHOS-NAK 1 PKT PACK PO PRN ×2 (16:56)
[2019-10-29] MEDS ORDERED: Potassium Phosphate 9 MMOL in Sodium Chloride 0.9% 100 ML IVPB PRN (16:56)
[2019-10-29] MEDS ORDERED: Magnesium 2 GM/50 ML 2 GM in Premix Bag 1 BAG IVPB PRN (16:56)
[2019-10-29] MEDS ORDERED: cefTRIAXone\\ROCEPHIN 2 GM in Sodium Chloride 0.9% 100 ML IVPB SCH (17:00)
[2019-10-29] MEDS ORDERED: Lactated Ringer's 1,000 ML IV SCH (17:00)
[2019-10-29] MEDS: Sodium Chloride 0.9% 500 ML IV SCH ×2 (17:49→18:18)
[2019-10-29] MEDS: Lactated Ringer's 1,000 ML IV SCH (18:58)
--- NOTE | 2019-10-29 19:29 | CON ---
DATE OF CONSULTATION: 10/29/2019 CHIEF COMPLAINT: Pneumonia. HISTORY OF PRESENT ILLNESS: Ms. Kong is a 74-year-old female, who states that she has noted gradual worsening shortness of breath over several weeks. For the past 4 or 5 days, she has been much more short of breath and has had a difficult time just getting from bed to bedside commode. She states that she had been fairly active until COVID became more notable in the news, and she began to restrain her activity. She does have a cough, but is productive only of clear sputum. She has not had any purulence or blood. She has not had any objective fever, although for a long time, she will get hot or cold and remove the covers during the night. She has not been exposed to any individuals, who are known to be ill. She does not have a past pulmonary history and is a nonsmoker. She presented to the emergency room, where her x-ray shows bilateral patchy consolidations. She is requiring 40% Venti face mask to maintain saturation in the low to mid 90s. Empiric antibiotic therapy has been initiated, and she is admitted to the ICU for antibiotics and rule out COVID protocol. SOCIAL HISTORY: The patient is a 74-year-old female. She states that she does not really want to be on life support machines, but would need to discuss it more thoroughly with her family before making a final decision. She is a lifelong nonsmoker. ALLERGIES: SHE HAS NO MEDICATION ALLERGIES. HOME MEDICATIONS: Include: 1. Amlodipine 5 daily. 2. Atorvastatin 20 daily. 3. Tapazole 20 b.i.d. 4. Lopressor 50 daily. PAST MEDICAL HISTORY: Remarkable for hypertension, dyslipidemia, diabetes (diet-controlled), and thyroid goiter with hyperthyroidism, for which she is on Tapazole. She has declined consideration of thyroidectomy. FAMILY HISTORY: No one is known to be ill with COVID or in a high-risk population. REVIEW OF SYSTEMS: Remarkable for pulmonary symptoms as described above. PHYSICAL EXAMINATION: VITAL SIGNS: Current blood pressure in the ICU is 160/88, heart rate 115, saturation 92% to 94% on 40% simple face mask. GENERAL: She is mildly ill. She is alert and answers questions. HEENT: She has no icterus. Her oropharynx shows moist membranes. She has a very large thyroid, Symmetrically enlarged, nodular, and nontender. LUNGS: Show coarse rales in both lung doe. HEART: Regular rate and rhythm with resting tachycardia. ABDOMEN: Soft. There is no organomegaly. There is no guarding. There is no mass. EXTREMITIES: Show no cyanosis or clubbing. NEUROLOGIC: Nonfocal. LABORATORY DATA: Chest x-ray shows bilateral patchy consolidation in the lower lung zones. There is no effusion. White count 24,000, hemoglobin 13.1, platelet count 564,000. Blood gas showed pH 7.46, CO2 of 29, pO2 of 48, bicarbonate 21. This was obtained on 40% oxygen. Electrolytes include sodium 131, potassium 3.9, chloride 95, CO2 of 18, BUN 53, creatinine 3.1, glucose is 164. Liver tests are normal. Her albumin is 3.2. Lipase is negative. Urinalysis is contaminated with epithelial cells. I do not see an old creatinine for comparison. IMPRESSION: 1. Bilateral pneumonia, atypical presentation of community-acquired pneumonia versus non-COVID viral pneumonia versus COVID. Her influenza A and B swabs are negative. She is on empiric antibiotic therapy. I am somewhat concerned that she does not have purulent sputum, although she does have a significant leukocytosis. Her tachycardia and borderline saturation are again worrisome that she may deteriorate or require ventilatory support. 2. Hyperthyroid goiter, on suppressant therapy. 3. History of hypertension. 4. Acuter renal insufficiency with unknown baseline. PLAN: She is admitted to the ICU and receiving empiric antibiotic therapy. COVID test has been requested and is pending. She has significant prerenal component of azotemia, and gentle fluid resuscitation is provided. I have discussed COVID possibilities with her. We have talked about possibility of needing intubation. At this point, it seems a little premature to proceed with intubation, but in the existing environment, we may need to pursue that sooner rather than later. Pulmonary Service will continue to follow and provide additional assistance. Thank you for this consultation. Job ID: [id number]
[2019-10-29] MEDS ORDERED: Hydroxychloroquine Sulfate 200 MG TAB PO SCH (21:00)
[2019-10-30 03:54] LABS: #Basophils 0.1 thou/uL (0.0-0.2); #Eosinphils 0.2 thou/uL (0.0-0.7); #Lymphocytes 1.4 thou/uL (1.20-3.40); #Monocytes 2.1 thou/uL (0.11-0.59); #Neutrophils 16.9 thou/uL (1.40-6.50); %Basophils 0.3 % (0.0-1.0); %Lymphocytes 6.6 % (21.0-51.0); %Monocytes 10.4 % (0.0-10.0); %Neutrophils 81.7 % (42.0-75.0); Hemoglobin 11.1 g/dL (12.0-16.0); Mean Corpuscular HGB CONC 33.8 g/dL (32.0-36.0); Mean Corpuscular Hemoglobin 27.8 pg (27.0-31.0); Mean Corpuscular Volume 82.3 fL (78.0-98.0); Mean Platelet Volume 5.7 fL (7.4-10.4); Platelet Count 547 thou/uL (130-400); RBC Distribution Width 11.8 % (11.5-14.5); White Blood Cell (WBC) Count 20.6 thou/uL (4.8-10.8)
[2019-10-30 04:02] LABS: Anion Gap 17 mmol/L (10-20); BUN (Urea Nitrogen) 46 mg/dL (9.8-20.1); Calc. Creatinine Clearance 18 mL/min (70-130); Calcium 8.4 mg/dL (7.8-10.44); Carbon Dioxide 22 mmol/L (23-31); Chloride 102 mmol/L (98-107); Estimated GFR-MDRD 24; Glucose 139 mg/dL (83-110); Potassium 3.1 mmol/L (3.5-5.1); Sodium 138 mmol/L (136-145)
[2019-10-30] MEDS: Lactated Ringer's 1,000 ML IV SCH ×2 (05:49→19:49)
[2019-10-30 07:34] LABS: Actual Bicarbonate (HCO3a) 19.5 mEq/L (22-28); Base Excess (BEa) -2.7 mEq/L (-2.0 to +3.0); CO2 Tension 26.9 mmHg (35.0-45.0); Calcium, Ionized 1.16 mmol/L (1.12-1.30); Carboxyhemoglobin (COHb) 0.8 gm% (0.0-3.0); Hemoglobin (Hb) 12.2 g/dL (12.0-16.0); Potassium - ABG Lab 3.56 mmol/L (3.70-5.30); pH, Arterial 7.48 (7.35-7.45)
[2019-10-30 07:49] LABS: ALV-art Gradient 276.575 (0-20); O2 Tension (PaO2) 46.3 mmHg (> 70.0); Puncture Site RRAD
[2019-10-30] MEDS: Amlodipine 5 MG TAB PO SCH (07:54)
[2019-10-30] MEDS: Enoxaparin Sodium 30 MG/0.3 ML SYRINGE SC SCH (07:55)
[2019-10-30] MEDS: Metoprolol Tartrate 50 MG TAB PO SCH ×2 (07:55→19:45)
[2019-10-30] MEDS: Methimazole 10 MG TAB PO SCH (07:55)
--- NOTE | 2019-10-30 08:01 | RAD ---
EXAM: CHEST ONE VIEW HISTORY: Follow-up evaluation. On ventilator. COMPARISON: 10/29/2019 FINDINGS: Cardiac silhouette is magnified by projection but stable in size. Increased bilateral perihilar inter stitial and patchy parenchymal opacities are seen with greater interstitial and parenchymal opacities present at each lung base which do appear mildly increased from the prior exam. No other in terval change. IMPRESSION: Interval increase in bilateral interstitial and alveolar opacities much greater at each lung base and perihilar locations. Findings may be related to worsening infectious process versus asymmetric pulmonary edema.
--- NOTE | 2019-10-30 08:44 | PDOC.FM ---
- Subjective Subjective: Doing well, pt states her sob has not changed overnight. She has general malaise. No new complaints - Objective Vital Signs & Weight: Vital Signs (12 hours) Temp Pulse Pulse Ox 10/30/19 08:00 98.6 F 10/30/19 07:54 108 H 10/30/19 07:40 93 L 10/30/19 04:00 97.8 F 93 L 10/30/19 00:00 98.6 F Weight Weight 55.7 kg Most Recent Monitor Data Heart Rate from ECG 93 NIBP 154/80 NIBP BP-Mean 104 Respiration from ECG 34 SpO2 94 I&O: 10/29/19 10/30/19 10/31/19 06:59 06:59 06:59 Intake Total 1495 50 Output Total 750 100 Balance 745 -50 Result Diagrams: 11/04/19 03:33 11/04/19 03:33 Phys Exam - Physical Examination Constitutional: NAD HEENT: moist MMs, sclera anicteric Neck: no JVD, supple Respiratory: no wheezing bilateral rhonchi Cardiovascular: RRR, no significant murmur Gastrointestinal: soft, non-tender Musculoskeletal: pulses present Neurological: normal sensation, moves all 4 limbs Psychiatric: normal affect, A&O x 3 Skin: no rash, normal turgor Dx/Plan (1) SIDRA (acute kidney injury) Code(s): N17.9 - ACUTE KIDNEY FAILURE, UNSPECIFIED Status: Acute (2) Acute respiratory failure with hypoxia Code(s): J96.01 - ACUTE RESPIRATORY FAILURE WITH HYPOXIA Status: Acute (3) Goiter Code(s): E04.9 - NONTOXIC GOITER, UNSPECIFIED Status: Acute (4) Graves disease Code(s): E05.00 - THYROTOXICOSIS W DIFFUSE GOITER W/O THYROTOXIC CRISIS Status : Acute (5) Hypertension Code(s): I10 - ESSENTIAL (PRIMARY) HYPERTENSION Status: Chronic Qualifiers: Hypertension type: essential hypertension Qualified Code(s): I10 - Essential (primary) hypertension - Plan Plan: Acute Hypoxic Respiratory Failure A- Rule out COVID due to tachypnea and XR findings. Currently on Venti-mask and CXR shows worsening today. P- continue rocephin and azithro -O2 supplement as needed -f/u pulm recommendations SIDRA A- Improving P- continue IVF Hyperthyroidism with goiter -continue home meds HTN -Continue home medications DM -SSI, accuchecks, home meds CODE STATUS: FULL CODE Addendum - Attending - Attending Attestation Date/Time: 11/07/19 [id number] I personally evaluated the patient and discussed the management with Dr. Steel on 10/30/19. I agree with the History, Examination, Assessment and Plan documented above with any addition or exceptions noted below. Changed to Hi-flow NC after remains hypoxemic on max Venti-mask. Discussed possibility that may need artificial ventilation with intubation if this is unsuccessful. Pt. clearly requested not being intubated regardless of her condition. She stated she would want other resuscitative measures at this point.
[2019-10-30] MEDS ORDERED: Prevnar 13-Val Conj/PF 0.5 ML SYRINGE IM ONE (09:00)
[2019-10-30] MEDS: methylPREDNISolone Sod Succ 40 MG VIAL IVP SCH ×2 (09:43→19:48)
[2019-10-30] MEDS ORDERED: Albuterol 200 PUFF (6.7GM INHALER) INH SCH (13:00)
[2019-10-30] MEDS ORDERED: Ipratropium/Albuterol Sulfate 4 GM AER IH SCH ×2 (13:00→19:00)
--- NOTE | 2019-10-30 13:28 | PQF ---
CLINICAL DOCUMENTATION IMPROVEMENT CLARIFICATION FORM: ICD-10 Updated PLEASE DO AN ADDENDUM TO THE PROGRESS NOTE WITH ANY DOCUMENTATION UPDATES OR ADDITIONS AND CARRY THROUGH TO DC SUMMARY. THANK YOU. DATE: 10/30/19 ATTN: DR. CYR Please exercise your independent, professional judgment in responding to the clarification form. Clinical indicators are provided on the bottom of this form for your review Please check appropriate box(s) to clarify if the following diagnosis has been ruled in or ruled out: PNEUMONIA [ x ] Ruled in diagnosis [ ] Continue to treat [ ] Resolved [ ] Ruled out diagnosis [ ] Improving [ ] Cannot rule out diagnosis [ ] Other diagnosis [ ] Unable to determine In addition, please specify: Present on Admission (POA): [ x ] Yes [ ] No [ ] Unable to determine For continuity of documentation, please document condition throughout progress notes and discharge summary. Thank You. CLINICAL INDICATORS - SIGNS / SYMPTOMS / LABS / RESULTS AND LOCATION IN MR CONSULTATION NOTE 10/28: "PNEUMONIA" ER NOTE: "TROUBLE SPEAKING IN FULL SENTENCES" WBC 10/28: 24.2 RISKS: H/O DIABETES (H&P) "COUGH FOR 1-2 MONTHS" (H&P) ADVANCED AGE TREATMENT: IV FLUIDS (ER-PRESENT) IV VANCOMYCIN (ER) IV AZITHROMYCIN (10/28-PRESENT) IV ROCEPHIN (10/28-PRESENT) COMBIVENT (10/29-PRESENT) SOLUMEDROL (START 10/29) SUPPLEMENTAL OXYGEN CHEST XRAY 10/28, 10/29 (This form is maintained as a part of the permanent medical record) 2014 [employer]. All Rights Reserved SHIRA [email or web address] [facility] HOSPITALJose
[2019-10-30] MEDS: Ipratropium/Albuterol Sulfate 4 GM AER IH SCH ×2 (13:29→19:29)
--- NOTE | 2019-10-30 13:35 | PQF ---
CLINICAL DOCUMENTATION IMPROVEMENT CLARIFICATION FORM: ICD-10 Updated PLEASE DO AN ADDENDUM TO THE PROGRESS NOTE WITH ANY DOCUMENTATION UPDATES OR ADDITIONS AND CARRY THROUGH TO DC SUMMARY. THANK YOU. DATE: 10/30/19 ATTN: DR. CYR Please exercise your independent, professional judgment in responding to the clarification form. Clinical indicators are provided on the bottom of this form for your review Please check appropriate box(es): [ x] Sepsis present on admission [ ] Sepsis NOT present on admission [ ] Unable to determine Due to: COVID 19 pneumonia Due to: [ ] Device (please specify) [ ] Implant [ ] Graft [ ] Infusion [ ] SIRS due to non-infectious process (please specify etiology) [ ] with organ dysfunction [ ] without organ dysfunction [ ] Severe sepsis present on admission [ ] Severe Sepsis NOT present on admission [ ] Unable to determine with acute organ dysfunction of: ____ [ ] Septic Shock present on Admission [ ] Septic Shock NOT present on Admission [ ] Unable to determine [ ] Localized infection without sepsis [ ] Other diagnosis [ ] Unable to determine For continuity of documentation, please document condition throughout progress notes and discharge summary. Thank You. CLINICAL INDICATORS - SIGNS / SYMPTOMS / LABS / RESULTS AND LOCATION IN MR WBC 10/28: 24.2 CRP 10/29: 11.22 LACTIC ACID 10/28: 2.5 ER NOTE: PULSE 122 RR 33 RISKS: CONSULTATION NOTE 10/28: "PNEUMONIA" H/O DIABETES (H&P) "COUGH FOR 1-2 MONTHS" (H&P) ADVANCED AGE TREATMENT: IV FLUIDS (ER-PRESENT) IV VANCOMYCIN (ER) IV AZITHROMYCIN (10/28-PRESENT) IV ROCEPHIN (10/28-PRESENT) COMBIVENT (10/29-PRESENT) SOLUMEDROL (START 10/29) SUPPLEMENTAL OXYGEN CHEST XRAY 10/28, 10/29 COVID-19 TESTING BLOOD AND URINE CULTURES 10/28 CRITICAL CARE MONITORING (This form is maintained as a part of the permanent medical record) 2014 [employer]. All Rights Reserved SHIRA [email or web address] Cell [facility] HOSPITALJose
[2019-10-30] MEDS ORDERED: Azithromycin 500 MG in Sodium Chloride 0.9% 250 ML 250 ML IVPB SCH (14:00)
[2019-10-30] MEDS: Atorvastatin Calcium 20 MG TAB PO SCH (19:45)
[2019-10-30] MEDS: Azithromycin 500 MG in Sodium Chloride 0.9% 250 ML 250 ML IVPB SCH (19:47)
[2019-10-30] MEDS: cefTRIAXone\\ROCEPHIN 2 GM in Sodium Chloride 0.9% 100 ML IVPB SCH (19:48)
[2019-10-30] MEDS ORDERED: Hydroxychloroquine Sulfate 200 MG TAB PO SCH ×2 (21:00→23:30)
[2019-10-31 00:07] LABS: Troponin I 0.013 ng/mL (< 0.028)
[2019-10-31] MEDS: Ipratropium/Albuterol Sulfate 4 GM AER IH SCH ×4 (00:26→18:24)
[2019-10-31 03:56] LABS: #Lymphocytes 1.2 thou/uL (1.20-3.40); #Neutrophils 18.3 thou/uL (1.40-6.50); %Basophils 0.1 % (0.0-1.0); %Lymphocytes 5.8 % (21.0-51.0); %Monocytes 4.8 % (0.0-10.0); %Neutrophils 89.3 % (42.0-75.0); Hemoglobin 11.8 g/dL (12.0-16.0); Mean Corpuscular HGB CONC 33.3 g/dL (32.0-36.0); Mean Corpuscular Hemoglobin 27.6 pg (27.0-31.0); Mean Platelet Volume 5.9 fL (7.4-10.4); Platelet Count 578 thou/uL (130-400); Red Blood Cell (RBC) Count 4.26 mill/uL (4.20-5.40); White Blood Cell (WBC) Count 20.5 thou/uL (4.8-10.8)
[2019-10-31 04:02] LABS: INR-International Normal Ratio 1.2; Prothrombin Time 14.7 SEC (12.0-14.7)
[2019-10-31 04:13] LABS: ALT (SGPT) 7 U/L (8-55); AST (SGOT) 12 U/L (5-34); Alkaline Phosphatase 135 U/L (40-110); Bilirubin, Direct 0.2 mg/dL (0.1-0.3); Bilirubin, Total 0.4 mg/dL (0.2-1.2); Magnesium 2.5 mg/dL (1.6-2.6); Phosphorus 3.5 mg/dL (2.3-4.7); Protein, Total 7.7 g/dL (6.0-8.3)
[2019-10-31 04:20] LABS: Anion Gap 20 mmol/L (10-20); BUN (Urea Nitrogen) 37 mg/dL (9.8-20.1); Calc. Creatinine Clearance 29 mL/min (70-130); Carbon Dioxide 18 mmol/L (23-31); Chloride 105 mmol/L (98-107); Estimated GFR-MDRD 42; Glucose 266 mg/dL (83-110); Sodium 139 mmol/L (136-145)
[2019-10-31] MEDS ORDERED: Tiotropium Bromide 4 GM INHALER IH SCH (07:00)
--- NOTE | 2019-10-31 07:24 | RAD ---
SINGLE VIEW CHEST: Date: 10/31/2019 COMPARISON: 10/30/2019. HISTORY: Ventilated patient with respiratory failure. FINDINGS: Single view of the chest shows a normal sized cardiomediastinal silhouette. There are stable diffuse mixed alveolar/interstitial opacities. Small pleural effusions may also be present. IMPRESSION: Stable exam. POS: [facility]
[2019-10-31] MEDS: Amlodipine 5 MG TAB PO SCH (08:30)
[2019-10-31] MEDS: Methimazole 10 MG TAB PO SCH (08:32)
[2019-10-31] MEDS: Metoprolol Tartrate 50 MG TAB PO SCH ×2 (08:33→21:01)
[2019-10-31] MEDS: Enoxaparin Sodium 30 MG/0.3 ML SYRINGE SC SCH (08:34)
--- NOTE | 2019-10-31 08:36 | PDOC.FM ---
- Subjective Subjective: Pt reports feeling no worse than yesterday. No improvement either though. Still has cough and subjective SOB. No new complaints. - Objective Vital Signs & Weight: Vital Signs (12 hours) Temp Pulse Pulse Ox 10/31/19 08:30 108 H 10/31/19 07:49 96 10/31/19 07:00 98.7 F 10/31/19 03:55 98.3 F 10/31/19 00:27 98 10/30/19 23:00 97.7 F Weight Admit Weight 55.338 kg Weight 56.2 kg Most Recent Monitor Data Heart Rate from ECG 111 NIBP 173/91 NIBP BP-Mean 118 Respiration from ECG 19 SpO2 99 I&O: 10/30/19 10/31/19 11/01/19 06:59 06:59 06:59 Intake Total 1495 2252 180 Output Total 750 1750 200 Balance 745 502 -20 Result Diagrams: 11/04/19 03:33 11/04/19 03:33 Phys Exam - Physical Examination Constitutional: NAD HEENT: moist MMs, sclera anicteric Neck: no JVD, supple Respiratory: no wheezing bilateral diffuse crackels Cardiovascular: no significant murmur tachy Gastrointestinal: soft, non-tender Musculoskeletal: no edema, pulses present Neurological: normal sensation, moves all 4 limbs Psychiatric: normal affect, A&O x 3 Skin: no rash, normal turgor Dx/Plan (1) SIDRA (acute kidney injury) Code(s): N17.9 - ACUTE KIDNEY FAILURE, UNSPECIFIED Status: Acute (2) Acute respiratory failure with hypoxia Code(s): J96.01 - ACUTE RESPIRATORY FAILURE WITH HYPOXIA Status: Acute (3) Goiter Code(s): E04.9 - NONTOXIC GOITER, UNSPECIFIED Status: Acute (4) Graves disease Code(s): E05.00 - THYROTOXICOSIS W DIFFUSE GOITER W/O THYROTOXIC CRISIS Status : Acute (5) Hypertension Code(s): I10 - ESSENTIAL (PRIMARY) HYPERTENSION Status: Chronic Qualifiers: Hypertension type: essential hypertension Qualified Code(s): I10 - Essential (primary) hypertension - Plan Plan: Acute Hypoxic Respiratory Failure 2/2 COVID pneumonia A- Pt tests positive for COVID19. Respiratory status remains precarious as pt was switched from mask to HFNC yesterday. BCx pending 48hr read. pt is DNI per conversation yesterday P- Plaquenil started last night -continue rocephin and azithro -f/u pulm recommendations SIDRA A- Improving P- continue IVF Hyperthyroidism with goiter -continue home meds HTN -Continue home medications DM -SSI, accuchecks, home meds CODE STATUS: DNI, cardiac only Addendum - Attending - Attending Attestation Date/Time: 11/13/19 9092 I personally evaluated the patient and discussed the management with Dr. Steel on 10/31/19. I agree with the History, Examination, Assessment and Plan documented above with any addition or exceptions noted below. Pt. continues with HFNC, able to achieve SaO2 of >95%, but symptomatically unchanged with elevated RR and increased WOB. Pt. is able to vocalize needs in short phrases, but very dyspneic. No QT prolongation. Markers and SIDRA appear to have improved slightly. Will continue to trend. Check TFT's in a.m. to be sure Euthyroid in current state. Continue Azith/HCquine respiratory support. 30 min Critical care with review of results and coordination of care..
--- NOTE | 2019-10-31 08:59 | PRG ---
DATE OF SERVICE: 10/31/2019 SUBJECTIVE: A 74-year-old female, who is COVID positive. She is on Zithromax 500, Plaquenil 200 twice a day for 10 days, adding Zinc and decreasing the steroids. She is now do not intubate. OBJECTIVE: GENERAL: She is awake, alert, responsive, on high-flow 96%, blood pressure 170/99, pulse 100, respiratory rate 18. CHEST: No wheezing or crackles. CARDIAC: Sinus tach. ABDOMEN: Soft. LABORATORY DATA: White count 20,000, H and H 11 and 35, platelet count 578. Creatinine 1.46. Ferritin is 402. C-reactive protein is elevated at 11. LDH is 519. IMPRESSION: 1. Bilateral bronchopneumonia, COVID positive. 2. Urinary tract infection. 3. Respiratory failure. PLAN: 1. Continue present treatment. 2. High-flow neb treatment. 3. Antiviral medication. 4. Prognosis is guarded. One-half hour of critical time. Job ID: [id number]
[2019-10-31] MEDS ORDERED: Hydroxychloroquine Sulfate 200 MG TAB PO SCH ×2 (09:00→23:00)
[2019-10-31] MEDS: Lactated Ringer's 1,000 ML IV SCH ×2 (09:50→21:00)
[2019-10-31 10:19] LABS: INR-International Normal Ratio 1.2; PTT 27.4 SEC (22.9-36.1); Prothrombin Time 15.3 SEC (12.0-14.7)
[2019-10-31 10:31] LABS: ALT (SGPT) 7 U/L (8-55); AST (SGOT) 14 U/L (5-34); Alkaline Phosphatase 136 U/L (40-110); Bilirubin, Direct 0.2 mg/dL (0.1-0.3); Bilirubin, Total 0.2 mg/dL (0.2-1.2); Protein, Total 7.5 g/dL (6.0-8.3)
[2019-10-31 10:43] LABS: D-Dimer Test Greater than 20.00 *mcg/mL (0.27-0.43)
[2019-10-31] MEDS ORDERED: Dextrose 5% in Water 1,000 ML IV PRN (15:55)
[2019-10-31] MEDS ORDERED: Dextrose 50% Abboject 50 ML SYRINGE SLOW IVP PRN (15:55)
[2019-10-31] MEDS: HumaLOG 300 UNITS/3 ML VIAL SC PRN ×2 (17:10→23:57)
--- NOTE | 2019-10-31 18:53 | CON ---
DATE OF CONSULTATION: REASON FOR CONSULTATION: Evaluate patient with [id number] COVID-19 infection. HISTORY OF PRESENT ILLNESS: A 74-year-old who has a history of Graves disease and was in her usual state until about a week before admission when she developed worsening dyspnea, tachypnea, associated with a cough, although the cough has been there for quite a while before these symptoms of dyspnea. No temperature elevation was documented. Initial findings included a BP 150/70, heart rate 122, respiratory rate 32, T-max 98.2, O2 saturation 93% Ventimask. Initial exam showed no described abnormalities on chest exam. Heart exam was normal. Abdomen, soft, nontender. Initial laboratory results of the white cell count 24,000, hemoglobin 13, platelets 564, 89% neutrophils. Initial chemistry with a sodium of 131, creatinine 3.16. AST 16, ALT 7, and alkaline phosphatase 117 with albumin 3.2, lipase 6. Initial lactic acid 2.5. Urinalysis with 7 to 10 wbc's. Initial chest x-ray demonstrated multifocal parenchymal infiltrates. Thus far, Microbiology showed negative respiratory virus PCR panel and a COVID-19 test was positive. The patient has been given azithromycin and hydroxychloroquine, and she has been started on ceftriaxone as well. The patient has coughing spells intermittently. No sputum production. Igos-qk-zqevhhmk dyspnea. No headaches. No abdominal pain. No diarrhea. No joint symptoms. PAST MEDICAL HISTORY: Hypertension, type 2 diabetes, hyperthyroidism. The actual cause of the hyperthyroidism, it was a colloid nodule, not Graves disease per pathology from the needle aspirate performed in the recent past. PAST SURGICAL HISTORY: Hysterectomy. FAMILY HISTORY: Noncontributory. SOCIAL HISTORY: Never smoker. Lives in the area. CURRENT MEDICATIONS: Include, 1. Inhalers. 2. Norvasc. 3. Lipitor. 4. Azithromycin. 5. Ceftriaxone. 6. Enoxaparin. 7. Hydroxychloroquine and other electrolytes. 8. She had been on steroids, those have been discontinued. PHYSICAL EXAMINATION: VITAL SIGNS: T-max 98.6, now 98.7, blood pressure 150/80, pulse 109, respirations 18 to 28, O2 saturation 92% to 98%. GENERAL: Thin and mildly tachypneic. No areas of skin breakdown. HEENT: Ocular movements conjugate. Oral cavity dry. NECK: Some accessory muscle use in the neck. No lymphadenopathy. LUNGS: With scattered inspiratory crackles. HEART: S1 and S2. Regular rate. Tachycardic. No murmurs. ABDOMEN: Soft. Not distended or tender. No ascites. MUSCULOSKELETAL: No joint inflammatory activity or edema. Pulses are 1+ in dorsalis pedis. LABORATORY DATA: White cell count now is, hemoglobin 11.8, platelets 578 with 89% neutrophils. INR 1.2 and the creatinine is down to 1.46. Sodium 139, phosphorus 3.5, albumin 3.0. Procalcitonin was less than 0.5. ASSESSMENT: Diffuse pneumonitis with positive coronavirus disease-19 test with [id number] illness. DISCUSSION: The patient has been started on therapy, which has not yet proven to be effective, but there is some early trials that might indicate some efficacy. IL -6 is a marker that has been shown to be associated with the worse outcomes but it is just a tentative finding yet just a single center finding. She has a do not resuscitate and so she is not going to be intubated if she deteriorates apparently. Corticosteroids have been shown to have worse outcomes in patients with many different respiratory viral infections. So, in general, this is contraindicated. Although in patients with more advanced disease who are intubated and have developed ARDS, there is still some debate, but at her stage, at the moment, I would advise discontinuation of corticosteroids. Superimposed infections, bacterial and viral have been considered already. One of the main difficulties in managing those patients, other than the infection control risks and the absence of evidence-based therapy, is the protracted nature of the illness, the multi- organ involvement with frequent cases of cardiomyopathy, encephalitis and gastrointestinal involvement. Job ID: [id number] [facility]
[2019-10-31] MEDS: Azithromycin 500 MG in Sodium Chloride 0.9% 250 ML 250 ML IVPB SCH (21:01)
[2019-10-31] MEDS: cefTRIAXone\\ROCEPHIN 2 GM in Sodium Chloride 0.9% 100 ML IVPB SCH (21:01)
[2019-10-31] MEDS: Atorvastatin Calcium 20 MG TAB PO SCH (21:01)
[2019-10-31] MEDS: Hydroxychloroquine Sulfate 200 MG TAB PO SCH (21:01)
[2019-11-01] MEDS: Ipratropium/Albuterol Sulfate 4 GM AER IH SCH ×3 (01:18→13:42)
[2019-11-01 03:59] LABS: Anion Gap 14 mmol/L (10-20); BUN (Urea Nitrogen) 32 mg/dL (9.8-20.1); Calc. Creatinine Clearance 33 mL/min (70-130); Carbon Dioxide 28 mmol/L (23-31); Chloride 106 mmol/L (98-107); Estimated GFR-MDRD 50; Glucose 171 mg/dL (83-110); Potassium 3.7 mmol/L (3.5-5.1); Sodium 144 mmol/L (136-145)
[2019-11-01 04:06] LABS: Band 1 % (5-11); Hemoglobin 11.7 g/dL (12.0-16.0); Hypochromia SLIGHT = 6-15 cells (100X) (0-5/hpf); Lymphocytes 5 % (21-51); MDiff Complete? YES; Mean Corpuscular HGB CONC 32.9 g/dL (32.0-36.0); Mean Corpuscular Hemoglobin 27.2 pg (27.0-31.0); Mean Corpuscular Volume 82.6 fL (78.0-98.0); Mean Platelet Volume 5.6 fL (7.4-10.4); Monocytes 6 % (0-10); Neutrophil 88 % (42-75); Platelet Count 608 thou/uL (130-400); Platelet Morphology Comment Appears Increased; RBC Distribution Width 11.8 % (11.5-14.5); Red Blood Cell (RBC) Count 4.32 mill/uL (4.20-5.40); White Blood Cell (WBC) Count 29.8 thou/uL (4.8-10.8)
[2019-11-01] MEDS: HumaLOG 300 UNITS/3 ML VIAL SC PRN ×2 (05:16→11:08)
--- NOTE | 2019-11-01 08:09 | RAD ---
SINGLE VIEW CHEST: Date: 11/01/2019 COMPARISON: 10/31/2019. HISTORY: Respiratory failure. FINDINGS: Single view of the chest shows a normal sized cardiomediastinal silhouette. There are diffuse mixed a lveolar/interstitial opacities. These are more prominent in the bilateral lower lobes. IMPRESSION: Stable multifocal infiltrates. POS: [facility]
--- NOTE | 2019-11-01 08:25 | PRG ---
DATE OF SERVICE: SUBJECTIVE: Ms. Kong remains in the ICU. She is hypoxic. She is short of breath. X-ray shows bilateral infiltrates. OBJECTIVE: VITAL SIGNS: Her saturations are 94% on a Ventimask, pulse 80, respiratory rate 20,bp 120/72_, and temperature 98. CHEST: Crackles. CARDIAC: Normal S1 and S2. No gallops. ABDOMEN: No masses. ASSESSMENT: 1. Bilateral pneumonia, rule out COVID infection. 2. Respiratory failure advanced age. PLAN: Awaiting results of the serology. Continue Zithromax. I have added steroids. She may require noninvasive ventilation. If condition gets worse, she may require intubation. One-half hour of critical care time. Job ID: [id number] [facility]
--- NOTE | 2019-11-01 08:31 | PDOC.FM ---
- Subjective Subjective: pt stable from yesterday, reports feeling mild improvement, she still has SOB/ cough. - Objective Vital Signs & Weight: Vital Signs (12 hours) Temp Pulse Ox 11/01/19 07:13 94 L 11/01/19 07:00 98.0 F 11/01/19 03:00 98.9 F 11/01/19 01:19 98 10/31/19 23:00 98.2 F Weight Admit Weight 55.338 kg Weight 55.1 kg Most Recent Monitor Data Heart Rate from ECG 113 NIBP 170/91 NIBP BP-Mean 117 Respiration from ECG 30 SpO2 93 I&O: 10/31/19 11/01/19 11/02/19 06:59 06:59 06:59 Intake Total 2252 2571 Output Total 1750 2220 200 Balance 502 351 -200 Result Diagrams: 11/04/19 03:33 11/04/19 03:33 Phys Exam - Physical Examination Constitutional: NAD HEENT: moist MMs, sclera anicteric Neck: supple Respiratory: no wheezing bilat diffuse crackels Cardiovascular: RRR, no significant murmur Gastrointestinal: soft, non-tender Musculoskeletal: pulses present Neurological: non-focal, normal sensation Psychiatric: normal affect, A&O x 3 Skin: no rash, normal turgor Dx/Plan (1) SIDRA (acute kidney injury) Code(s): N17.9 - ACUTE KIDNEY FAILURE, UNSPECIFIED Status: Acute (2) Acute respiratory failure with hypoxia Code(s): J96.01 - ACUTE RESPIRATORY FAILURE WITH HYPOXIA Status: Acute (3) Goiter Code(s): E04.9 - NONTOXIC GOITER, UNSPECIFIED Status: Acute (4) Graves disease Code(s): E05.00 - THYROTOXICOSIS W DIFFUSE GOITER W/O THYROTOXIC CRISIS Status : Acute (5) Hypertension Code(s): I10 - ESSENTIAL (PRIMARY) HYPERTENSION Status: Chronic Qualifiers: Hypertension type: essential hypertension Qualified Code(s): I10 - Essential (primary) hypertension - Plan Plan: Acute Hypoxic Respiratory Failure and sepsis 2/2 COVID pneumonia A- Pt tests positive for COVID19. Respiratory status remains precarious as pt was switched from mask to HFNC yesterday. BCx negative. pt is DNI per conversation yesterday P- Plaquenil -continue rocephin and azithro -f/u pulm recommendations -f/u ID recs SIDRA A- Improving P- continue IVF Hyperthyroidism with goiter -continue home meds HTN -Continue home medications DM -SSI, accuchecks, home meds CODE STATUS: DNI, cardiac only IVF: LR 75/hr PPx: lovenox Addendum - Attending - Attending Attestation Date/Time: 11/13/19 8421 I personally evaluated the patient and discussed the management with Dr. Steel on 11/01/19. I agree with the History, Examination, Assessment and Plan documented above with any addition or exceptions noted below. Pt. continues with HFNC--FiO2 87 @ 30L/min, SaO2 of 88-95%, but symptomatically unchanged with elevated RR and increased WOB. Pt. is able to vocalize needs in short phrases, but very dyspneic. Permissively hypertensive. HR 90-110's. Repeat EKG tomorrow. CXR unchanged. Labs show rising WBC, improved Cr, CRP. Continue Azith/HCquine, Respiratory support. Consider prone positioning. 30 min Critical care with review of results and coordination of care..
--- NOTE | 2019-11-01 09:12 | PRG ---
DATE OF SERVICE: 11/01/2019 SUBJECTIVE: This morning, she is looking much better. Less short of breath. OBJECTIVE: VITAL SIGNS: Sats on high-flow 94%, temperature 98, blood pressure 170/99, and respiratory rate 18. CHEST: No wheezing, no crackles. CARDIAC: Normal S1 and S2. No gallops. ABDOMEN: No masses. LABORATORY DATA: X-ray looks improved in bilateral infiltrates. White count is elevated at 29,000, platelet count is 608. Creatinine 1.29. Elevated LDH. C-reactive protein is 3.97, seems to be coming down. IMPRESSION: COVID is positive, bilateral bronchopneumonia, urinary tract infection, respiratory failure. Continue Zithromax, Plaquenil, Rocephin, supportive care. Consider PT to sit up in a chair if possible. Job ID: [id number]
[2019-11-01] MEDS: Methimazole 10 MG TAB PO SCH (09:33)
[2019-11-01] MEDS: Enoxaparin Sodium 30 MG/0.3 ML SYRINGE SC SCH (09:34)
[2019-11-01] MEDS: Metoprolol Tartrate 50 MG TAB PO SCH ×2 (09:34→21:52)
[2019-11-01] MEDS: Hydroxychloroquine Sulfate 200 MG TAB PO SCH ×2 (09:34→21:52)
[2019-11-01] MEDS: Amlodipine 5 MG TAB PO SCH (09:34)
[2019-11-01] MEDS ORDERED: Metoprolol Tartrate 50 MG TAB PO SCH (10:45)
[2019-11-01 11:09] LABS: Free T4 (Free Thyroxine) 1.37 ng/dL (0.70-1.48); Thyroid Stimulating Hormone 2.1985 uIU/mL (0.35-4.94)
[2019-11-01] MEDS ORDERED: Morphine 10 MG/0.5 ML ORAL SYRINGE SL PRN (12:20)
[2019-11-01 12:36] VITALS: BMI 19.5
[2019-11-01] MEDS: Lactated Ringer's 1,000 ML IV SCH (13:11)
--- NOTE | 2019-11-01 14:08 | EKG ---
Test Reason : Blood Pressure : / mmHG Vent. Rate : 114 BPM Atrial Rate : 114 BPM P-R Int : 126 ms QRS Dur : 090 ms QT Int : 348 ms P-R-T Axes : 037 001 054 degrees QTc Int : 479 ms Sinus tachycardia Possible Left atrial enlargement ST abnormality, possible digitalis effect Abnormal ECG Confirmed by MARIANNE MACHADO ([id number]), editor at large NIXON REDDY ([id number]) on 11/01/2019 2:08:12 PM Referred By: Confirmed By:MARIANNE Garcia
[2019-11-01 17:36] VITALS: BP 167/87
[2019-11-01] MEDS: Azithromycin 500 MG in Sodium Chloride 0.9% 250 ML 250 ML IVPB SCH (21:51)
[2019-11-01] MEDS: Atorvastatin Calcium 20 MG TAB PO SCH (21:51)
[2019-11-01] MEDS: cefTRIAXone\\ROCEPHIN 2 GM in Sodium Chloride 0.9% 100 ML IVPB SCH (21:52)
[2019-11-02] MEDS: Ipratropium/Albuterol Sulfate 4 GM AER IH SCH ×3 (06:38→14:25)
[2019-11-02 07:17] LABS: Hemoglobin 12.6 g/dL (12.0-16.0); Mean Corpuscular HGB CONC 32.7 g/dL (32.0-36.0); Mean Corpuscular Hemoglobin 27.1 pg (27.0-31.0); Mean Corpuscular Volume 82.9 fL (78.0-98.0); Mean Platelet Volume 5.6 fL (7.4-10.4); Platelet Count 569 thou/uL (130-400); Red Blood Cell (RBC) Count 4.66 mill/uL (4.20-5.40); White Blood Cell (WBC) Count 28.3 thou/uL (4.8-10.8)
[2019-11-02 07:31] LABS: Anion Gap 17 mmol/L (10-20); BUN (Urea Nitrogen) 20 mg/dL (9.8-20.1); Calc. Creatinine Clearance 44 mL/min (70-130); Calcium 8.7 mg/dL (7.8-10.44); Carbon Dioxide 23 mmol/L (23-31); Chloride 103 mmol/L (98-107); Estimated GFR-MDRD 69; Glucose 193 mg/dL (83-110); Sodium 140 mmol/L (136-145)
[2019-11-02 07:59] LABS: Lymphocytes 6 % (21-51); MDiff Complete? YES; Monocytes 13 % (0-10); Neutrophil 81 % (42-75); Platelet Morphology Comment Appears Increased; RBC Morphology Normal
--- NOTE | 2019-11-02 08:20 | RAD ---
CHEST 1 VIEW: Date: 11/02/2019 HISTORY: Respiratory insufficiency. COMPARISON: 11/01/2019. FINDINGS: Fairly extensive bilateral alveolar and interstitial opacities throughout both lungs with some bilate ral confluence, particularly in the lower lung zones. There is costophrenic angle blunting, evidence for pleural effusions. Compared to prior exams, there is slightly more confluence on today's study. IMPRESSION: Some continued bilateral alveolar and interstitial and pleural opacity changes minimally progressive. Continue short-term follow-up. Showing no significant improvement. POS: [facility]
[2019-11-02] MEDS: Methimazole 10 MG TAB PO SCH (08:43)
--- NOTE | 2019-11-02 08:49 | PRG ---
DATE OF SERVICE: 11/02/2019 SUBJECTIVE: Celine Kong this morning havingmore_ difficulty breathing. OBJECTIVE: VITAL SIGNS: Temperature 98, blood pressure 122\76_ pulse 80. CHEST: Crackles. CARDIAC: Sinus tach. ABDOMEN: Soft. White count is elevated at 28,000. C-reactive protein is still elevated at 7.14. X-ray shows slightly worsening pulmonary infiltrate. COVID is positive, bilateral bronchopneumonia, respiratory failure. She is already on Zithromax, Plaquenil, may consider adding low-dose steroids. She is diabetic by mouth. We will discuss with primary care physician. Pulmonary will follow. One-half hour of critical time. Job ID: [id number] [facility]
[2019-11-02] MEDS: Metoprolol Tartrate 50 MG TAB PO SCH ×2 (08:58→21:46)
[2019-11-02] MEDS: Hydroxychloroquine Sulfate 200 MG TAB PO SCH ×2 (08:59→21:46)
[2019-11-02] MEDS: methylPREDNISolone Sod Succ 40 MG VIAL IVP SCH (08:59)
[2019-11-02] MEDS: Enoxaparin Sodium 30 MG/0.3 ML SYRINGE SC SCH (08:59)
[2019-11-02] MEDS: Amlodipine 5 MG TAB PO SCH (09:03)
--- NOTE | 2019-11-02 09:21 | PDOC.FM ---
- Subjective Subjective: reports feeling "fine" unable to answer other questions appropriately. PT had schaefer cath put in overnight after she had frequently attempted unassisted ambulation - Objective Vital Signs & Weight: Vital Signs (12 hours) Temp Pulse Pulse Ox 11/02/19 09:03 108 H 11/02/19 07:00 91 L 11/02/19 04:00 98.8 F 11/02/19 02:06 92 L Weight Admit Weight 55.338 kg Weight 55.1 kg Most Recent Monitor Data Heart Rate from ECG 95 NIBP 171/87 NIBP BP-Mean 115 Respiration from ECG 34 SpO2 89 I&O: 11/01/19 11/02/19 11/03/19 06:59 06:59 06:59 Intake Total 2571 2190 Output Total 2220 1200 Balance 351 990 Result Diagrams: 11/04/19 03:33 11/04/19 03:33 Phys Exam - Physical Examination mild distress HEENT: moist MMs, sclera anicteric Neck: no nodes, no JVD bilateral diffuse crackles, RR 60 Cardiovascular: RRR, no significant murmur Gastrointestinal: soft, non-tender Musculoskeletal: pulses present Neurological: normal sensation, moves all 4 limbs Deviation from normal: mild distress affect Skin: no rash, normal turgor Dx/Plan (1) SIDRA (acute kidney injury) Code(s): N17.9 - ACUTE KIDNEY FAILURE, UNSPECIFIED Status: Acute (2) Acute respiratory failure with hypoxia Code(s): J96.01 - ACUTE RESPIRATORY FAILURE WITH HYPOXIA Status: Acute (3) Goiter Code(s): E04.9 - NONTOXIC GOITER, UNSPECIFIED Status: Acute (4) Graves disease Code(s): E05.00 - THYROTOXICOSIS W DIFFUSE GOITER W/O THYROTOXIC CRISIS Status : Acute (5) Hypertension Code(s): I10 - ESSENTIAL (PRIMARY) HYPERTENSION Status: Chronic Qualifiers: Hypertension type: essential hypertension Qualified Code(s): I10 - Essential (primary) hypertension - Plan Plan: Acute Hypoxic Respiratory Failure and sepsis 2/2 COVID pneumonia A- Pt has worsened from yesterday, HFNC at 30L FiO2 at 88. tachypneic. P- cancel transfer orders -Plaquenil -continue rocephin and azithro -f/u pulm recommendations -f/u ID recs SIDRA -improved Hyperthyroidism with goiter -continue home meds, TSH fT4 wnl HTN -Continue home medications DM -SSI, accuchecks, home meds CODE STATUS: DNI, cardiac only IVF: LR 75/hr PPx: lovenox Addendum - Attending - Attending Attestation Date/Time: 11/13/19 2294 I personally evaluated the patient and discussed the management with Dr. Steel on 11/03/19. I agree with the History, Examination, Assessment and Plan documented above with any addition or exceptions noted below. Pt. continues with HFNC--FiO2 87 @ 30L/min, SaO2 of 75-90%, but symptomatically more dsypneic with elevated RR and increased WOB. Appears exhausted. Permissively hypertensive. HR 90-110's. Repeat EKG without QT prolongation. CXR unchanged. Labs show rising WBC, CRP, Ferritin, LDH, improved Cr. Continue Azith/HCquine, Respiratory support. 30 min Critical care with review of results and coordination of care..
[2019-11-02 09:50] LABS: Protein, Total 7.3 g/dL (6.0-8.3)
[2019-11-02 09:51] LABS: Bilirubin, Total 0.3 mg/dL (0.2-1.2)
[2019-11-02 09:52] LABS: Alkaline Phosphatase 141 U/L (40-110)
[2019-11-02 09:55] LABS: ALT (SGPT) 11 U/L (8-55); AST (SGOT) 18 U/L (5-34); Bilirubin, Direct 0.2 mg/dL (0.1-0.3)
[2019-11-02] MEDS: Lactated Ringer's 1,000 ML IV SCH ×3 (10:24→18:27)
[2019-11-02] MEDS ORDERED: Morphine 10 MG/0.5 ML ORAL SYRINGE SL PRN ×2 (11:47→15:18)
[2019-11-02] MEDS ORDERED: Potassium Chloride 40 MEQ in Sodium Chloride 0.9% 250 ML 250 ML IVPB SCH (13:00)
[2019-11-02] MEDS ORDERED: Lorazepam 2 MG/ML VIAL SLOW IVP SCH (21:00)
[2019-11-02] MEDS: cefTRIAXone\\ROCEPHIN 2 GM in Sodium Chloride 0.9% 100 ML IVPB SCH (21:45)
[2019-11-02] MEDS: Atorvastatin Calcium 20 MG TAB PO SCH (21:45)
[2019-11-02] MEDS: Azithromycin 500 MG in Sodium Chloride 0.9% 250 ML 250 ML IVPB SCH (21:45)
[2019-11-02] MEDS: HumaLOG 300 UNITS/3 ML VIAL SC PRN (22:29)
[2019-11-03] MEDS ORDERED: Lorazepam 2 MG/ML VIAL ONE (02:47)
[2019-11-03] MEDS: Lorazepam 2 MG/ML VIAL SLOW IVP PRN ×4 (02:51→17:54)
[2019-11-03] MEDS: Ipratropium/Albuterol Sulfate 4 GM AER IH SCH ×5 (04:42→20:25)
[2019-11-03] MEDS: Lactated Ringer's 1,000 ML IV SCH ×2 (05:06→17:52)
[2019-11-03 05:43] LABS: Band 4 % (5-11); Eosinophils 1 % (0-10); Hemoglobin 10.8 g/dL (12.0-16.0); Lymphocytes 10 % (21-51); MDiff Complete? YES; Mean Corpuscular HGB CONC 32.7 g/dL (32.0-36.0); Mean Corpuscular Hemoglobin 27.2 pg (27.0-31.0); Mean Corpuscular Volume 83.2 fL (78.0-98.0); Mean Platelet Volume 6.1 fL (7.4-10.4); Monocytes 7 % (0-10); Neutrophil 78 % (42-75); Platelet Count 395 thou/uL (130-400); RBC Distribution Width 11.9 % (11.5-14.5); Red Blood Cell (RBC) Count 3.97 mill/uL (4.20-5.40); White Blood Cell (WBC) Count 25.4 thou/uL (4.8-10.8)
[2019-11-03 05:54] LABS: Anion Gap 11 mmol/L (10-20); BUN (Urea Nitrogen) 21 mg/dL (9.8-20.1); Calc. Creatinine Clearance 48 mL/min (70-130); Calcium 8.2 mg/dL (7.8-10.44); Carbon Dioxide 28 mmol/L (23-31); Chloride 110 mmol/L (98-107); Estimated GFR-MDRD 77; Glucose 138 mg/dL (83-110); Sodium 146 mmol/L (136-145)
--- NOTE | 2019-11-03 07:27 | RAD ---
SINGLE VIEW CHEST: Date: 11/03/2019 COMPARISON: 11/02/2019. HISTORY: CCU patient with respiratory failure. FINDINGS: Single view of the chest shows a normal sized cardiomediastinal silhouette. There are bilateral lower lobe infiltrates with possible small adjacent pleural effusions. No change has occurred compared to the prior exam. IMPRESSION: Stable exam. POS: [facility]
--- NOTE | 2019-11-03 08:45 | PDOC.FM ---
- Subjective Subjective: Pt resting, appears in mild distress, not answering to questions. Overnigh O2 sats dropped. Family was contacted and insisted that hydroxychloroquin be withdrawn. They were concerned this was the cause of respiratory distress and insisted it be DCd despite conversation regarding medication. no other acute events overnight - Objective Vital Signs & Weight: Vital Signs (12 hours) Temp Pulse Ox 11/03/19 05:00 98.5 F 11/02/19 23:41 96 Weight Admit Weight 55.338 kg Weight 55.1 kg Most Recent Monitor Data Heart Rate from ECG 80 NIBP 148/77 NIBP BP-Mean 100 Respiration from ECG 27 SpO2 85 I&O: 11/02/19 11/03/19 11/04/19 06:59 06:59 06:59 Intake Total 2190 2362 Output Total 1200 1605 Balance 990 757 Result Diagrams: 11/04/19 03:33 11/04/19 03:33 Phys Exam - Physical Examination mild distress HEENT: moist MMs, sclera anicteric Neck: no JVD, supple Respiratory: no wheezing bilat diffuse crackles Cardiovascular: RRR, no significant murmur Gastrointestinal: soft, non-tender Musculoskeletal: no edema GCS 1,2,1 Skin: no rash, normal turgor Dx/Plan (1) SIDRA (acute kidney injury) Code(s): N17.9 - ACUTE KIDNEY FAILURE, UNSPECIFIED Status: Acute (2) Acute respiratory failure with hypoxia Code(s): J96.01 - ACUTE RESPIRATORY FAILURE WITH HYPOXIA Status: Acute (3) Goiter Code(s): E04.9 - NONTOXIC GOITER, UNSPECIFIED Status: Acute (4) Graves disease Code(s): E05.00 - THYROTOXICOSIS W DIFFUSE GOITER W/O THYROTOXIC CRISIS Status : Acute (5) Hypertension Code(s): I10 - ESSENTIAL (PRIMARY) HYPERTENSION Status: Chronic Qualifiers: Hypertension type: essential hypertension Qualified Code(s): I10 - Essential (primary) hypertension - Plan Plan: Acute Hypoxic Respiratory Failure and sepsis 2/2 COVID pneumonia A- Pt has worsened again overnight. On maximal respiratory support short of intubation. Plaquenil DCd on request of family last night. P- will call family to clarify goals of careand discuss plaquenil use once again -continue rocephin and azithro -continue steroids per pulm recs -f/u pulm recommendations -f/u ID recs SIDRA -improved Hyperthyroidism with goiter -continue home meds, TSH fT4 wnl HTN -Continue home medications DM -SSI, accuchecks, home meds CODE STATUS: DNI, cardiac only IVF: LR 75/hr PPx: lovenox Addendum - Attending - Attending Attestation Date/Time: 11/13/19 5115 I personally evaluated the patient and discussed the management with Dr. Steel on 11/03/19. I agree with the History, Examination, Assessment and Plan documented above with any addition or exceptions noted below. Pt. continues with HFNC--FiO2 90 @ 30L/min, SaO2 of 75-90%, but symptomatically worsening with elevated RR and increased WOB. Pt. but very dyspneic, minimally responsive. Permissively hypertensive. HR 90-110's. Repeat EKG tomorrow. CXR unchanged. Labs show rising CRP, Ferritin, improved Cr. Continue Azith, HCquine d/c'd per family request/insistence. Respiratory support. Pt. prognosis unfortunately very poor. 30 min Critical care with review of results and coordination of care.
[2019-11-03] MEDS: Metoprolol Tartrate 50 MG TAB PO SCH ×2 (09:00→20:35)
[2019-11-03] MEDS: Methimazole 10 MG TAB PO SCH (09:00)
[2019-11-03] MEDS: Amlodipine 5 MG TAB PO SCH (09:00)
[2019-11-03] MEDS: methylPREDNISolone Sod Succ 40 MG VIAL IVP SCH (09:11)
[2019-11-03] MEDS: Enoxaparin Sodium 30 MG/0.3 ML SYRINGE SC SCH (09:11)
--- NOTE | 2019-11-03 11:00 | PRG ---
DATE OF SERVICE: 11/03/2019 SUBJECTIVE: Ms. oKng's gas exchange has not improved. In fact, it has been deteriorating. OBJECTIVE: VITAL SIGNS: Blood pressure 141/72, heart rate is 90, respiratory rates in the 30s, O2 saturations are down in the 70s. She did not want to be intubated. LUNGS: Unchanged. HEART: Unchanged. ABDOMEN: Unchanged. LABORATORY DATA: White count 25.4, hemoglobin 10.8, platelets 395. Sodium 146, potassium 3, chloride 110, bicarb 28, BUN 29, creatinine 0.87. IMPRESSION: 1. Pneumonia, likely associated with COVID infection. 2. Do not intubate. There is no point in doing chest compressions if she develops hypoxemic arrest. We will continue with full supportive care . Job ID: [id number]
--- NOTE | 2019-11-03 11:23 | PDOC.BPN ---
- Brief Progress Note Had family phone meeting and discussed goals of care at this point. Family desires to continue supportive care up to HFNC, they desire to keep off Hydroxychloroquin at this point. They desire to change code status from DNI to DNAR. This change has been made.
[2019-11-03] MEDS: HumaLOG 300 UNITS/3 ML VIAL SC PRN (14:21)
[2019-11-03] MEDS: Morphine 4 MG/ML VIAL SLOW IVP PRN ×2 (16:43→21:59)
[2019-11-03] MEDS: Atorvastatin Calcium 20 MG TAB PO SCH (20:35)
[2019-11-03] MEDS: cefTRIAXone\\ROCEPHIN 2 GM in Sodium Chloride 0.9% 100 ML IVPB SCH (20:35)
[2019-11-03] MEDS: Azithromycin 500 MG in Sodium Chloride 0.9% 250 ML 250 ML IVPB SCH (20:35)
[2019-11-04] MEDS: Ipratropium/Albuterol Sulfate 4 GM AER IH SCH (00:42)
[2019-11-04] MEDS: Lorazepam 2 MG/ML VIAL SLOW IVP PRN (01:13)
[2019-11-04] MEDS: Morphine 4 MG/ML VIAL SLOW IVP PRN (04:01)
[2019-11-04 04:20] VITALS: TEMP 92.8
[2019-11-04 04:43] LABS: Anion Gap 17 mmol/L (10-20); BUN (Urea Nitrogen) 24 mg/dL (9.8-20.1); Calc. Creatinine Clearance 52 mL/min (70-130); Calcium 8.4 mg/dL (7.8-10.44); Carbon Dioxide 25 mmol/L (23-31); Chloride 109 mmol/L (98-107); Estimated GFR-MDRD 69; Glucose 198 mg/dL (83-110); Potassium 3.2 mmol/L (3.5-5.1); Sodium 148 mmol/L (136-145)
[2019-11-04 04:56] LABS: Band 1 % (5-11); Hemoglobin 11.4 g/dL (12.0-16.0); Lymphocytes 5 % (21-51); MDiff Complete? YES; Mean Corpuscular HGB CONC 31.8 g/dL (32.0-36.0); Mean Corpuscular Volume 84.9 fL (78.0-98.0); Mean Platelet Volume 6.8 fL (7.4-10.4); Monocytes 6 % (0-10); Neutrophil 88 % (42-75); Platelet Count 382 thou/uL (130-400); Red Blood Cell (RBC) Count 4.21 mill/uL (4.20-5.40); White Blood Cell (WBC) Count 23.8 thou/uL (4.8-10.8)
[2019-11-04] MEDS ORDERED: Norepinephrine 8 MG in Dextrose 5% in Water 242 ML IVPB PRN (06:32)
[2019-11-04] MEDS: Lactated Ringer's 1,000 ML IV SCH (06:59)
[2019-11-04] MEDS ORDERED: Ipratropium/Albuterol Sulfate 4 GM AER IH SCH (07:00)
[2019-11-04] MEDS ORDERED: Lactated Ringer's 1,000 ML IV SCH (07:00)
--- NOTE | 2019-11-04 07:14 | PDOC.BPN ---
- Brief Progress Note Pt becoming hypotensive overnight, HR 58, O2 sat in 80s on HFNC. Called to discuss goals of care once again and the possibility of pressors for BP support. decided that the pt would not want pressors at this point in her illness.
--- NOTE | 2019-11-04 08:31 | RAD ---
SINGLE VIEW CHEST: HISTORY: Daily chest x-ray and CCU patient with respiratory failure. COMPARISON: 11/03/19 FINDINGS: A single view of the chest shows a normal sized cardiomediastinal silhouette. There are diffuse, mixe d alveolar/interstitial opacities. No obvious pleural effusion is seen. IMPRESSION: Stable examination. POS: [facility]
[2019-11-04] MEDS ORDERED: Enoxaparin Sodium 40 MG/0.4 ML SYRINGE SC SCH (09:00)
--- NOTE | 2019-11-04 09:09 | PDOC.BPN ---
Addendum entered and electronically signed by Anton Steel MD 11/04/19 09:12 : Cause of : hypoxic respiratory failure 2/2 COVID-19 pneumonia Original Note: <Anton Steel - Last Filed: 11/04/19 09:05> - Brief Progress Note Called to bedside, HR 30s and quickly declined to asystole while in room. 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 prior to my seeing her on the morning of 11/04/19. I visited with her , who was allowed to enter the hospital initially for an opportunity for a final visit, but she prior to his arrival at bedside. We discussed her progress over the course of hospitalization and I answered all questions he might have. Expressed appreciation for the attention and care we provided for the patient. 30 minutes dedicated to this interaction.
--- NOTE | 2019-11-04 11:25 | DIS ---
DATE OF ADMISSION: 10/29/2019 DATE OF DISCHARGE: 11/04/2019 DATE OF : 11/04/2019. ATTENDING: Anton Kramer MD RESIDENT: Anton Steel MD. I personally saw the patient for a total of 6 days. TIME OF : 0730 hours. CAUSE OF : Hypoxic respiratory failure secondary to COVID-19 pneumonia. SECONDARY DIAGNOSES: Acute kidney injury, hyperthyroidism, hypertension, diabetes. HISTORY OF PRESENT ILLNESS/HOSPITAL COURSE: This was a 74-year-old female who presented in respiratory distress to the hospital. She was tested for COVID-19 and tested positive, thus was started on azithromycin and hydroxychloroquine. The patient's respiratory status was precarious as on presentation. She was tachypneic, on Ventimask at 15 L. The patient declined in her respiratory status and so was placed on high-flow nasal cannula. The patient was competent and a discussion of goals of care and code status was held with the patient as well as with her in two separate encounters. Both of them agreed that she would not want to be intubated and her code status would be do not intubate and thus her code status was changed from full to do not intubate. At that time, she was on nasal cannula, high flow, at a FiO2 of 68%. Her respiratory status worsened over the course in the next few days until she was on maximal therapy through high flow nasal cannula. Additionally, the patient's mental status worsened and she was no longer appropriately answering questions and seemed to be disoriented. Oxygen saturations for a few days were in 80s, on maximal high-flow nasal cannula. Code status was once again discussed with the family who decided in agreement that she would be DNAR and she would not want cardiac resuscitation if she should go into arrest. As her condition continued to worsen, the discussion of pressors was also held with the family who decided that she would not want pressors that this at this point would only prolong her suffering. Family was called to travel up to hospital and the patient on 11/04/2019 at 7:30 in the morning from hypoxic respiratory failure secondary to COVID-19 pneumonia. Job ID: [id number] MTDD
--- NOTE | 2019-11-08 08:08 | PQF ---
MATT JOVEL ROBERT r* [id number] CLINICAL DOCUMENTATION CLARIFICATION FORM: POST DISCHARGE Addendum to original discharge summary date: ____ Late entry note date: __ DATE: 11/08/19 ATTN: Dr. Anton Steel, Please exercise your independent, professional judgment in responding to the clarification form. Clinical indicators are provided on the bottom of this form for your review Diagnosis: Sepsis Present on Admission (POA): [ x ] Yes [ ] No [ ] Unable to determine Coding guidelines require hospitals to identify whether a diagnosis was present on admission (POA) or not. To accurately assign the appropriate POA indicator, this information must be clearly documented within the medical record. CLINICAL INDICATORS - SIGNS / SYMPTOMS / LABS COVID test 10/28--Positive Labs 10/28--WBC 20.6, Plt count 547, Neutorphils 81.7, Monocutes 10.4, Procalcitonin 0.77, Lactic acid 2.5 Vital signs-10/28--BP 136/69, Pulse 119, Resp 40, Temp 97.1 ED notes page 2 "SIRS scoring: yes, patient did meet at least 2 criteria" H&P pg1 10/28 Dr. Meza "present to ED due to increased work of breathing from home" H&P pg 1 10/28 Dr. Meza "On ED sat on room air was 60%" H&P pg 2 10/28 Dr. Meza "Heart: Tachycardic, Lungs: Tachypnea" H&P pg 5 10/28 "Acute Kidney injury" Hospitalist PN pg 3 10/31 "Acute hypoxic Respiratory failure and sepsis 2/2 COVID Pneumonia" H&P pg6 10/28 Dr. Meza "She is also noted to have leukocytosis" RISK FACTORS: H&P pg1 10/28--74 year old female H&P pg1 10/28--HTN, HLD, DM2 H&P pg1 10/28--Hyperthyroidism with goiter Consult pg1 10/28--Pneumonia Hospitalist PN pg3 10/31--COVID 19 infection TREATMENT: SEP 26--IV Vancomycin 1gm SEP 26--IVF NS 1 L SEP 26--IVF LR 1 L SEP 26--IV Azithromycin 500mg SEP 26--Duoneb 3 ml neb SEP 26-- Combivent Respimat 20-100mcg SEP 26--Plaquenil 400mg Oral Respiratory Panel 10/28--O2 on 50 via Venturi Mask COVID test--10/28 Chest x-ray--10/28 Thank you, Phoebe Prabhakar, THELMA (This form is maintained as a part of the permanent medical record) 2014 [employer] All Rights Reserved Phoebe [email or web address] [phone] [facility]
--- NOTE | 2019-11-09 07:33 | EKG ---
Test Reason : Blood Pressure : / mmHG Vent. Rate : 093 BPM Atrial Rate : 093 BPM P-R Int : 138 ms QRS Dur : 086 ms QT Int : 384 ms P-R-T Axes : 056 013 055 degrees QTc Int : 477 ms Normal sinus rhythm Normal ECG When compared with ECG of 29-OCT-2019 11:57, (Unconfirmed) No significant change was found Confirmed by VANESSA HENDERSON, EDITH ([id number]) on 11/09/2019 7:32:33 AM Referred By: KLARISSA IsaacR Confirmed By:EDITH MENDEZ MD
--- NOTE | 2019-11-09 07:35 | EKG ---
Test Reason : Blood Pressure : / mmHG Vent. Rate : 104 BPM Atrial Rate : 104 BPM P-R Int : 140 ms QRS Dur : 088 ms QT Int : 364 ms P-R-T Axes : 046 000 071 degrees QTc Int : 478 ms Sinus tachycardia Nonspecific T wave abnormality Abnormal ECG When compared with ECG of 31-OCT-2019 10:22, (Unconfirmed) Nonspecific T wave abnormality now evident in Inferior leads Nonspecific T wave abnormality, worse in Lateral leads Confirmed by EDITH MENDEZ MD ([id number]) on 11/09/2019 7:34:50 AM Referred By: RANDAL CYR *R Confirmed By:EDITH MENDEZ MD
--- NOTE | 2019-11-09 07:39 | EKG ---
Test Reason : AM EKG Blood Pressure : / mmHG Vent. Rate : 092 BPM Atrial Rate : 092 BPM P-R Int : 128 ms QRS Dur : 088 ms QT Int : 426 ms P-R-T Axes : 039 -05 051 degrees QTc Int : 526 ms Normal sinus rhythm Left ventricular hypertrophy with repolarization abnormality Prolonged QT Abnormal ECG When compared with ECG of 02-NOV-2019 08:45, (Unconfirmed) Nonspecific T wave abnormality no longer evident in Lateral leads Confirmed by EDITH MENDEZ MD ([id number]) on 11/09/2019 7:38:46 AM Referred By: Emilia CYR Confirmed By:EDITH MENDEZ MD
== END 2019-11-04 10:00 | disposition expired | DRG 871 ==
LOC: ERS 11:40 → CCU 16:39 → IMCU/EMU 11-04 02:10
PROVIDERS: ADMIT Student in an Organized Health Care Education/Training Program; ATTEND Student in an Organized Health Care Education/Training Program
PROC: 8E0ZXY6 Isolation (ICD-10-PCS; principal; 2019-10-29)
DX: A41.89 Other specified sepsis (principal); U07.1 COVID-19; J12.89 Other viral pneumonia; J96.01 Acute respiratory failure with hypoxia; N39.0 Urinary tract infection, site not specified; N17.9 Acute kidney failure, unspecified; Z66 Do not resuscitate; E21.3 Hyperparathyroidism, unspecified; I10 Essential (primary) hypertension; E11.9 Type 2 diabetes mellitus without complications; E05.00 Thyrotoxicosis with diffuse goiter without thyrotoxic crisis or storm; Z78.1 Physical restraint status; Z79.899 Other long term (current) drug therapy; Z90.710 Acquired absence of both cervix and uterus
CPT/HCPCS: 36415; 36416; 51701; 71045; 80048; 80053; 80076; 81003; 81015; 82550; 82728; 82805; 83605; 83615; 83690; 83735; 83880; 84100; 84145; 84439; 84443; 84484; 85025; 85379; 85384; 85610; 85730; 86140; 87040; 87077; 87086; 87186; 87633; 87804; 93005; 93010; 96365; J0456; J0696; J1650; J2060; J2270; J2920; J3370; J3480; J3490; J7050; U0001